=== PATIENT | female | born 1950 | race Caucasian/White ===

== ENCOUNTER → 2017-12-12 | Outpatient (CLI) | payer OTHER ==
--- NOTE | 2017-12-12 11:29 | DIAGNOSTIC IMAGING REPORT ---
RENAL ULTRASOUND CLINICAL HISTORY: Renal cyst. History of renal cell carcinoma. COMPARISON STUDY: None. TECHNIQUE: Sonography of the kidneys and the urinary bladder was performed. FINDINGS: The right kidney measures 8.8 x 3.9 x 5 cm. Note is made of a 6 mm cyst within the midpole of the right kidney. Exam is compromised by suboptimal penetration. The left kidney measures 14.7 x 3.9 x 4 cm. Note is made of an 8.4 x 8.2 x 7.7 cm anechoic lesion arising from the lower pole of the left kidney. This is consistent with a cyst. There is apparent mild right and moderate left collecting system dilatation. Both ureteral jets were identified. IMPRESSION: 1. 8.4 cm left renal cyst. 2. Apparent moderate left and mild right collecting system dilatation. Parapelvic cysts could appear similar although collecting system dilatation of uncertain etiology is favored. Electronically signed by: Seabs Kerns M.D. 12/12/2017 11:27 AM Dictated Date/Time: 12/12/2017 11:24 AM
== END | disposition home or self-care (01) ==
LOC: C.ULTR 10:23
PROVIDERS: ATTEND Family Medicine
DX: N28.1 Cyst of kidney, acquired (principal)

== ENCOUNTER 2019-10-13 00:47 | Observation (INO) ==
[2019-10-13] MEDS ORDERED: SODIUM CHLORIDE 0.9% 1000ML 1,000 ML IV ONE (01:17)
[2019-10-13] MEDS ORDERED: MECLIZINE HCL 25 MG TAB PO STA (01:17)
[2019-10-13 01:43] LABS: Eosinophils # (auto) 0.14 K/uL (0-0.5); Hematocrit (blood only) 42.4 % (37-47); Hemoglobin 14.8 g/dL (12.0-16.0); Immature Granulocytes # (auto) 0.01 K/uL (0.00-0.02); Immature Granulocytes % (auto) 0.1 %; Lymphocytes # (auto) 2.09 K/uL (1.2-3.4); Lymphocytes % (auto) 29.2 %; Mean Corpuscular Hemoglobin 31.1 pg (25-34); Mean Corpuscular Hgb Conc 34.9 g/dL (32-36); Mean Corpuscular Volume 89.1 fL (80-100); Mean Platelet Volume 9.2 fL (7.4-10.4); Monocytes # (auto) 0.54 K/uL (0.11-0.59); Monocytes % (auto) 7.6 %; Neutrophils # (auto) 4.37 K/uL (1.4-6.5); Neutrophils % (auto) 61.1 %; Platelet Count 208 K/uL (130-400); RDW Coefficient of Variation 12.6 % (11.5-14.5); RDW Standard Deviation 40.9 fL (36.4-46.3); Red Blood Count 4.76 M/uL (4.2-5.4); White Blood Count 7.15 K/uL (4.8-10.8)
[2019-10-13 01:50] LABS: Appearance Urine Clear (Clear); Bacteria Urine Automated Negative (Negative); Bilirubin Urine Negative (Negative); Blood Urine Negative (Negative); Color Urine Yellow; Epithelial Cell Urine Auto 20-30 /lpf (0-5); Glucose Urine UA Negative (Negative); Ketones Urine Negative (Negative); Leukocyte Esterase Urine Trace (Negative); Nitrite Urine Negative (Negative); Protein Urine Negative (Negative); RBC Urine Automated 0-4 /hpf (0-4); Urobilinogen Urine Negative (Negative)
[2019-10-13 01:59] LABS: BUN Creatinine Ratio 23.9 (10-20); Blood Urea Nitrogen 17 mg/dl (7-18); Calcium 9.2 mg/dl (8.5-10.1); Carbon Dioxide 26 mmol/L (21-32); Chloride 106 mmol/L (98-107); Creatinine Clr Calc Pharmacy 61.2 ml/min; Est GFR (African American) 99.7; Est GFR (Non-African American) 86.1; Glucose 111 mg/dl (70-99); Potassium 3.7 mmol/L (3.5-5.1); Sodium 139 mmol/L (136-145)
[2019-10-13 02:04] LABS: Troponin I < 0.015 ng/ml (0-0.045)
[2019-10-13] MEDS: MECLIZINE HCL 25MG HOME PACK PO ONE ×2 (02:59→03:04)
[2019-10-13] MEDS ORDERED: DIAZEPAM 5 MG/ML INJ 10ML VIAL IV STA (03:01)
--- NOTE | 2019-10-13 04:49 | History & Physical Report ---
Date of Service October 13, 2019 Assessment & Plan (1) Vertigo: 69-year-old female with history of hyperlipidemia, hypertension, kidney cancerright partial nephrectomy 2001, allergic rhinitis, GERD status post niacin 2005, vitamin D deficiency, IBS, osteoarthritis, insomnia presents status post vertigo episodes today. Concern for likely peripheral vertigo. Vertigo: Likely peripheral versus central Positive hints test and [place]-Hallpike Patient is not hypotensive CT head negative: Chronic small vessel ischemic changes C-spine CT negative MRI brain deferred EKG normal sinus 68 QTC 425 Troponin negative Received 1 L normal saline, meclizine and diazepam in the ED Meclizine as needed Neurology consulted Monitor on telemetry Hyperlipidemia Per PCP note and patient statin intolerant Fairly controlled via diet and exercise Repeat lipid profile ordered History of prediabetes Glucose 111 today A1c ordered Allergic rhinitis Continue home Nasonex Anxiety/insomnia Continue home Ativan as needed History of kidney cancer status post right partial nephrectomy 2001 FEN/GI: Heart healthy diet Code: Full DVT prophylaxis: SCDs only, encourage ambulation Disposition: [facility] with telemetry (2) History of kidney cancer: (3) Vitamin D deficiency: (4) Irritable bowel syndrome: (5) Hyperlipidemia: (6) Allergic rhinitis: (7) Acid reflux: History of Present Illness Chief Complaint: Vertigo Primary Care Provider: Alison Mathias DO 69-year-old female with history of hyperlipidemia, hypertension, kidney c ancerright partial nephrectomy 2001, allergic rhinitis, GERD status post niacin 2005, vitamin D deficiency, IBS, osteoarthritis, insomnia presents status post vertigo episodes today. Reports waking up this morning and going to the bathroom twice during which she felt like the room was spinning for about a minute. She was fine for the rest of the day and carried out her regular routine. However she woke up from sleep all of a sudden around 10:30 PM and felt like she was going to fall and had the same room spinning sensation. She reports bumping with her shoulder into the wall and and hit her dresser with her buttocks. She denies any head injury or loss of consciousness. Presented to the emergency room for concern of possible stroke. Vertigo was worse when she bended over. Also reports allergy symptoms-sinus tenderness, congestion, postnasal drip with mild sore throat. Denies any nausea, vomiting, shortness of breath, chest pain, headache, abdominal pain, constipation, dysuria, hematuria. Patient reports still being lightheaded and alone at home so she feels unsafe to go back at this time and would like to remain in the hospital for observation. Allergies Allergy/AdvReac Type Severity Reaction Status Date / Time adhesive Allergy Intermediate WELTS Verified 10/13/19 01:44 Penicillins Allergy Intermediate Rash Verified 10/13/19 01:44 Sulfa (Sulfonamide Allergy Intermediate Rash Verified 10/13/19 01:44 Antibiotics) metoclopramide [From Reglan] AdvReac Severe Anaphylaxis Verified 10/13/19 01:44 Home Medications Home Medications Medication Instructions Recorded Confirmed Type acetaminophen [Tylenol Extra 1,000 mg PO Q6H PRN 05/17/19 10/13/19 History Strength] cholecalciferol (vitamin D3) 50 2,000 units PO DAILY #30 cap 05/24/19 10/13/19 Rx mcg (2,000 unit) capsule diclofenac sodium 1 % topical gel 2 gm TOP BID PRN #100 gm 05/24/19 10/13/19 Rx mometasone 50 mcg/actuation nasal 1 - 2 spray INTRANASAL DAILY #17 gm 09/13/19 10/13/19 Rx spray lorazepam 0.5 mg tablet 0.5 mg PO DAILY PRN #90 tab 09/17/19 10/13/19 Rx meclizine 25 mg PO TID PRN #14 tab 10/13/19 Rx Past Med/Surg History Medical History Acid reflux Allergic rhinitis Diverticulosis of colon History of kidney cancer 2001, s/p nephrectomy Hyperlipidemia Insomnia Irritable bowel syndrome Prediabetes Renal cyst Vitamin D deficiency Surgical History H/O partial nephrectomy (Resolved) History of fundoplication (Acute) History of hernia repair History of oophorectomy, unilateral right side S/P cholecystectomy (05/20/19) S/P ERCP (05/18/19) Family History Mother , age 46 Colon cancer Thyroid disease Father Pneumonia Social History Preferred Language: Khmer Communication Ability: Effective Visual Impairment: No Limitations Hearing Ability: Normal Freight Brake Operator Required: No Beliefs That Will Affect Care: None marital status: Current Living Situation: Spouse current occupational status: retired Feels Safe at Home: Yes Smoking Status: Never smoker Second Hand Exposure: Yes (as a child) ; Hx Alcohol Use: No Hx Substance Use: No Dental Care, Regularly: Yes Physical Activity Frequency: Does not Exercise Seatbelt Use: always Review of Systems Review of Systems: As per HPI Physical Exam Physical Exam: General: In NAD Neuro: A&O x 4, CN 2-12 intact, positive HINTS test, Vik Hallpike produced nystagus when head turned to left side at 45 degrees, Benjamin maneuver performed, Strength 5/5 bilateral upper and lower extremities, sensation intact Pulm: CTAB equal breath sounds bilaterally CV: RRR, no m/r/g Abdomen:+BS, no TTP in all quadrants, non-distended LE: no LE edema, no calf TTP Results & Data Vital Signs (Past 12 Hours) Vital Signs Temp Pulse Pulse Resp BP BP Pulse Ox 10/13/19 03:59 75 16 145/93 H 95 10/13/19 03:17 69 18 153/97 H 98 10/13/19 02:49 73 20 148/92 H 96 10/13/19 02:36 68 18 168/99 H 98 10/13/19 01:58 61 18 152/88 H 96 10/13/19 00:54 36.5 C 61 18 176/107 H 99 Laboratory Results Abnormal lab results 10/13/19 10/13/19 Range/Units 01:30 01:30 BUN/Creatinine Ratio 23.9 H (10-20) Glucose 111 H (70-99) mg/dl Ur Leukocyte Esterase Trace H (Negative) U Epithel Cells (Auto) 20-30 H (0-5) /lpf Code Status & VTE Plan Code Status Full code VTE Prophylaxis Plan VTE Prophylaxis will be ordered: Yes Supervising Physician Co-Signing Physician Notes Attending addendum: I have physically seen this patient, have supervised the medical residents activities, and agree with the H&P unless as otherwise noted. Assessment and Plan: Vertigo/likely BPPV- Patient lives alone at home and is concerned about going home with her symptoms. CT head negative for acute event, does show chronic small vessel disease. Physical examination consistent with peripheral source. Received 1 L normal saline, meclizine and diazepam in ED without significant improvement symptoms. Admit to monitored bed overnight. Neurology to see in the a.m. Remainder of orders and notations as noted. Resident Activity Tracking Resident Involvement: Resident Care Provided Care Provided: Adult [facility] Medicine
[2019-10-13] MEDS ORDERED: ONDANSETRON INJ 2 MG/ML 2 ML VIAL IV PRN (05:34)
[2019-10-13] MEDS ORDERED: MECLIZINE 12.5 MG TAB PO PRN (05:34)
[2019-10-13] MEDS ORDERED: ACETAMINOPHEN 500 MG TAB PO PRN (05:34)
[2019-10-13] MEDS ORDERED: LORazepam 0.5 MG TAB PO PRN (05:34)
[2019-10-13] MEDS ORDERED: DICLOFENAC SOD 1% GEL 100 GM TUBE EXT PRN (05:34)
--- NOTE | 2019-10-13 05:59 | Emergency Department Note ---
Entered by Hal Sanchez acting as a scribe for ED Provider Note Name: Chula Miller Age: 69 Arrives Via: Triage Informant: Self CC: Dizziness HPI: 69 y/o female arrives for evaluation of intermittent dizziness beginning 21 hours ago. The patient states she woke up around 4am yesterday morning to use the restroom and experienced dizziness when she was getting out and getting into bed. She reports it felt as if the room was spinning. The patient notes she then had another episode a few hours later. She states she was active today around town and did not have difficulty. The patient reports she then had another episode tonight as she went to bed. She notes she got up to use the restroom aga in and felt the room spinning. The patient states she started stumbling this time and ran into the wall and dresser due to the room spinning. She reports she did not hit her head. The patient notes she also had left arm numbness and neither dropped anything nor had difficulty walking today. She states she is right handed. The patient reports a history of arthritis and has neck pain. She notes a recent cholecystectomy, and she has not been eating regularly since her surgery. The patient denies urinary burning, urinary frequency, and vomiting. She also denies a history of smoking, drug use and regular alcohol use. ROS: See above HPI for pertinent positives & negatives. A total of 10 systems reviewed and were otherwise negative. Past Medical History: Renal cell carcinoma, GERD, HLD, IBS Past Surgical History: Cholecystectomy, laparoscopy, hernia repair Family History: Cancer, [place] Social History: Negative drug and tobacco use. Retired. Lives with . . Home Medications: Ativan and Nasonex Allergies Penicillins, Sulfa Physical: Vitals: BP 176/107, Pulse 61, Resp 18, Temp 97.7 F, O2 Sat 99 on RA Exam: GENERAL: Patient is anxious appearing and in minimal acute distress. EYES: No scleral icterus, unremarkable pupils. ENT: Mucous membranes moist, no nasal congestion. NECK: No masses appreciated, no meningismus, trachea is midline. RESPIRATORY: No dyspnea. Clear to auscultation and equal bilaterally. No wheeze, no rhonchi. CARDIOVASCULAR: Regular rate and rhythm. No murmurs, rubs, gallops appreciated. GASTROINTESTINAL: Abdomen soft, non-tender, no peritonitis. Bowel sounds positive. No masses appreciated. BACK: No midline tenderness, no CVA tenderness EXTREMITIES: Normal motion all extremities, no cyanosis, no edema. NEUROLOGIC: Alert and oriented, no acute motor or sensory deficits, no focal weakness, cranial nerves grossly intact. Right horizontal nystagmus. SKIN: No rash, no jaundice, no diaphoresis. ED Course: Prior Medical Record, Triage/Nursing Notes, Medications, Allergies reviewed by Me Vital Signs: reviewed and remarkable for HTN Labs: Reviewed and remarkable for wnl Interventions: saline lock, meclizine 25mg PO, Valium 5mg IV, NSS bolus 1 VIRY Imaging: Radiology results as stated below per my review and the radiologist's interpretation: CT HEAD: No ICH, mass effect or edema. Chronic small vessel ischemic change. No skull fracture. Radiologist: Husam Blank M.D. Study ready at 01:58 and initial results transmitted at 02:11 CT C SPINE: No evidence of fracture or malalignment. Radiologist: Husam Blank M.D. Study ready at 02:00 and initial results transmitted at 02:29 EKG: Per My Interpretation: Indication Vertigo. NSR 68 bpm, qtc 425, no ectopy no ischemia. Similar 05/19/19 Consults: none Reassessments/Times: 0108: Past medical records reviewed. The patient was evaluated in room A03. A complete history and physical exam was performed. 0148: The patient is at CT. 0236: The patient has had complete resolution of her symptoms and is ambulating without difficulty. 0250: I discussed vertigo and the risk of having a stroke. The patient would like to leave. She will follow-up with her PCP. 0301: The patient stood up to leave and had a sudden onset of severe symptoms. She almost lost consciousness. 0304: Upon reevaluation, the patient is resting comfortably. I discussed laboratory and radiographic results with her. She verbalized agreement of the treatment plan. The patient will be evaluated for further management and care. 0308: Paged Dr. Pastor, [facility] Hospitalist. 0329: I reviewed the patient's case with Dr. Pastor, [facility] Hospitalist. He will evaluate the patient for further management. Blood pressure: Elevated - Referred to Hospitalist Disposition: Hospitalization Differentials: Benign positional vertigo, Dehydration, Hypovolemia, Anemia, Tumor, Infection, Hypoglycemia, Electrolyte abnormalities, Cardiac sources, Intracerebral event, Toxicologic, Neurologic, as well as others were entertained. Medical Decision Making: Pleasant 69 yr old female with vertiginous symptoms in setting of dehydration. Given IV Fluids and meclizine and initially improved but then had severe symptoms and near syncope as being discharged. After this required IV valium. Due to living alone and still symptomatic hospitalist consulted for further management. Patient with some tingling left arm but no weakness nor other symptoms of stroke and with 12+ hours symptoms not TPA candidate. CT head neg. CT cervical done as some neck pain after falling against wall, but no evidence fracture. Work up otherwise benign. Impression: Vertigo Jonathan Harrell MD The scribe's documentation has been prepared under my direction and personally reviewed by me in its entirety. I confirm that the note above accurately reflects all work, treatment, procedures, and medical decision making performed by me. Impression & Plan Vertigo Past Med/Surg History Medical History Acid reflux Allergic rhinitis Diverticulosis of colon History of kidney cancer 2001, s/p nephrectomy Hyperlipidemia Insomnia Irritable bowel syndrome Prediabetes Renal cyst Vitamin D deficiency Surgical History H/O partial nephrectomy (Resolved) History of fundoplication (Acute) History of hernia repair History of oophorectomy, unilateral right side S/P cholecystectomy (05/20/19) S/P ERCP (05/18/19) Family History Mother , age 46 Colon cancer Thyroid disease Father Pneumonia Social History Preferred Language: [place] Communication Ability: Effective Visual Impairment: No Limitations Hearing Ability: Normal Clinical Support Nurse Required: No Beliefs That Will Affect Care: None marital status: Current Living Situation: Spouse current occupational status: retired Feels Safe at Home: Yes Smoking Status: Never smoker Second Hand Exposure: No ; Hx Alcohol Use: No Hx Substance Use: No Dental Care, Regularly: Yes Physical Activity Frequency: Does not Exercise Seatbelt Use: always Results & Data Vital Signs Vital Signs - 24 hr 10/13/19 00:54 10/13/19 01:58 10/13/19 02:36 Temperature 36.5 C Temperature Source Oral Pulse Rate 61 Pulse Rate [Left Finger] 61 68 Respiratory Rate 18 18 18 Respiratory Effort / Characteristics Non-Labored Respiratory Depth Normal Blood Pressure 176/107 H Blood Pressure [Right Arm] 152/88 H 168/99 H Blood Pressure Mean 130 Blood Pressure Mean [Right Arm] 109 122 Blood Pressure Position [Right Arm] Sitting Sitting Pulse Oximetry 99 96 98 Oxygen Delivery Method Room Air Room Air Room Air Sepsis Recent Fever Within 48 Hours No Sepsis Action Taken by Nursing No Action Required 10/13/19 02:49 10/13/19 03:17 10/13/19 03:59 Temperature Temperature Source Pulse Rate Pulse Rate [Left Finger] 73 69 75 Respiratory Rate 20 18 16 Respiratory Effort / Characteristics Respiratory Depth Blood Pressure Blood Pressure [Right Arm] 148/92 H 153/97 H 145/93 H Blood Pressure Mean Blood Pressure Mean [Right Arm] 110 115 110 Blood Pressure Position [Right Arm] Pulse Oximetry 96 98 95 Oxygen Delivery Method Room Air Room Air Room Air Sepsis Recent Fever Within 48 Hours Sepsis Action Taken by Nursing Laboratory Data Result diagrams: 10/13/19 01:30 10/13/19 01:30 Lab Results 10/13/19 10/13/19 10/13/19 Range/Units 01:30 01:30 01:30 WBC 7.15 (4.8-10.8) K/uL RBC 4.76 (4.2-5.4) M/uL Hgb 14.8 (12.0-16.0) g/dL Hct 42.4 (37-47) % MCV 89.1 (80-100) fL MCH 31.1 (25-34) pg MCHC 34.9 (32-36) g/dL RDW Std Deviation 40.9 (36.4-46.3) fL RDW Coeff of Abdifatah 12.6 (11.5-14.5) % Plt Count 208 (130-400) K/uL MPV 9.2 (7.4-10.4) fL Immature Gran % (Auto) 0.1 % Neut % (Auto) 61.1 % Lymph % (Auto) 29.2 % [place] % (Auto) 7.6 % Eos % (Auto) 2.0 % Baso % (Auto) 0.0 % Immature Gran # (Auto) 0.01 (0.00-0.02) K/uL Neut # (Auto) 4.37 (1.4-6.5) K/uL Lymph # (Auto) 2.09 (1.2-3.4) K/uL [place] # (Auto) 0.54 (0.11-0.59) K/uL Eos # (Auto) 0.14 (0-0.5) K/uL Baso # (Auto) 0.00 (0-0.2) K/uL Sodium 139 (136-145) mmol/L Potassium 3.7 (3.5-5.1) mmol/L Chloride 106 (98-107) mmol/L Carbon Dioxide 26 (21-32) mmol/L Anion Gap 7.0 (3-11) BUN 17 (7-18) mg/dl Creatinine 0.72 (0.6-1.2) mg/dl Est Cr Clr Drug Dosing 61.2 ml/min Est GFR ( Amer) 99.7 Est GFR (Non-Af Amer) 86.1 BUN/Creatinine Ratio 23.9 H (10-20) Glucose 111 H (70-99) mg/dl Calcium 9.2 (8.5-10.1) mg/dl Troponin I < 0.015 (0-0.045) ng/ml Urine Color Yellow Urine Appearance Clear (Clear) Urine pH 6.0 (4.5-7.5) Ur Specific [place] 1.020 (1.000-1.030) Urine Protein Negative (Negative) Urine Glucose (UA) Negative (Negative) Urine Ketones Negative (Negative) Urine Blood Negative (Negative) Urine Nitrite Negative (Negative) Urine Bilirubin Negative (Negative) Urine Urobilinogen Negative (Negative) Ur Leukocyte Esterase Trace H (Negative) Urine WBC (Auto) 1-5 (0-5) /hpf Urine RBC (Auto) 0-4 (0-4) /hpf U Hyaline Cast (Auto) 1-5 (0-5) /lpf U Epithel Cells (Auto) 20-30 H (0-5) /lpf Urine Bacteria (Auto) Negative (Negative) Administered Medications Discontinued Medications Diazepam (Valium) 5 mg IV NOW STA Stop: 10/13/19 03:02 Last Admin: 10/13/19 03:59 Dose: 5 mg Documented by: [id number] Sodium Chloride (Nss 1000ml) 1,000 mls @ 999 mls/hr IV .Q1H1M ONE Stop: 10/13/19 02:17 Last Infusion: 10/13/19 02:49 Dose: 0 mls/hr Documented by: [id number] Admin: 10/13/19 01:55 Dose: 999 mls/hr Documented by: [id number] Meclizine HCl (Antivert) 25 mg PO NOW STA Stop: 10/13/19 01:18 Last Admin: 10/13/19 01:28 Dose: 25 mg Documented by: [id number] Meclizine HCl (Antivert 25mg Home Pack) 1 homepack PO UD ONE Stop: 10/13/19 02:52 Last Admin: 10/13/19 03:04 Dose: Not Given Documented by: [id number] Discharge Plan Visit Data *Final* Discharge Date/Time: 10/13/19 04:58 Chief Complaint: Dizziness Stated Complaint: DIZZY ED Provider: Jonathan Harrell Discharge Problem: Vertigo Patient Disposition: Admitted As Inpatient Condition: Good Discharge Instructions Interventions: ED Discharge Assessment Last Done: 10/13/19 04:58 The scribe's documentation has been prepared under my direction and personally reviewed by me in its entirety. I confirm that the note above accurately reflects all work, treatment, procedures, and medical decision making performed by me.
[2019-10-13 07:05] LABS: Chol HDL Ratio 3; Cholesterol 175 mg/dl (0-200); HDL Cholesterol 57 mg/dl; LDL Cholesterol Calculated 102 mg/dl; Triglycerides 79 mg/dl (0-150); VLDL Cholesterol 16 mg/dl
--- NOTE | 2019-10-13 08:29 | CT Scan Report ---
CT head/brain wo con CLINICAL HISTORY: 69 years-old Female with vertiginous, new onset. Acute vertigo with head injury st atus post fall TECHNIQUE: Multiple axial CT images of the head were obtained without contrast. A dose lowering tech nique was utilized adhering to the principles of ALARA. COMPARISON: CT cervical spine of same day. FINDINGS: No acute intracranial hemorrhage, midline shift, intracranial mass, hydrocephalus, territorial ischem ia or abnormal extra-axial collection. Mild patchy white matter hypodensities suggest chronic microva scular ischemic disease The calvarium is intact. Trace right mastoid effusion. Left mastoid air cells and paranasal sinuses appear clear. Soft tissues and orbits are unremarkable. IMPRESSION: No acute intracranial abnormality or calvarial fracture. The above report was generated using voice recognition software. It may contain grammatical, syntax o r spelling errors. Electronically signed by: Abel Haro M.D. 10/13/2019 8:28 AM
--- NOTE | 2019-10-13 08:34 | CT Scan Report ---
CT cervical spine wo con CT DOSE: 921.45 mGy.cm CLINICAL HISTORY: 69 years-old Female with fall, upper cervical pain. Acute neck pain status post fa ll COMPARISON: Head CT of same day TECHNIQUE: Multiple axial CT images of the cervical spine were obtained without contrast. A dose low ering technique was utilized adhering to the principles of ALARA. FINDINGS: Moderate to severe disc space narrowing at C5-C6 and C6-C7 with posterior disc osteophyte complex for mations. Severe multilevel facet arthropathy, left greater than right. No acute cervical spine fractu re or subluxation. Evaluation of the central canal or neuroforaminal structures is better evaluated b y MRI. Multilevel foraminal narrowing is noted. Lung apices are clear without pneumothorax. No prever tebral soft tissue swelling. IMPRESSION: No acute cervical spine fracture or subluxation. The above report was generated using voice recognition software. It may contain grammatical, syntax o r spelling errors. Electronically signed by: Abel Haro M.D. 10/13/2019 8:33 AM
[2019-10-13] MEDS ORDERED: CHOLECALCIFEROL 1,000 UNITS 25 MCG TAB PO SCH (09:00)
--- NOTE | 2019-10-13 09:57 | Neurology Consultation ---
Date of Consultation October 13, 2019 Assessment & Plan (1) Vertigo: This patient probably has benign positional paroxysmal vertigo. Her symptoms are reproducible with the Vik-Hallpike. However, I think it would be reasonable to obtain some additional testing to ensure that we are not missing a small posterior circulation infarct. In that light, I think an MRI of the brain with and without contrast would be reasonable. I would also recommend a CT angiogram of the head and neck to exclude vertebrobasilar occlusion, stenosis, or dissection. She may have some difficulty tolerating MRI due to her symptoms that are provoked by lying in the supine position and may require some premed ication with diazepam. May continue with meclizine and/or Lorazepam on an as- needed basis to address her vertigo should she experience a significant recurrence. If her MRI does show evidence of a small acute or subacute infarct then I would recommend starting daily low-dose aspirin and completion of a full stroke work-up including echocardiogram. Would consider consultation with physical therapy as well which may be helpful to address her vertigo. Please contact me if I may be of further assistance. History of Present Illness Reason for Consultation: Vertigo Requesting Physician: Za Godfrey MD Attending Physician: Matt Li DO History of Present Illness The patient is a 69-year-old female with a chief complaint of vertigo. She complains of a spinning sensation that began acutely yesterday morning at around 4 AM upon lying back in bed after returning from the restroom. She woke up the following morning and felt relatively normal. However, later in the evening she had another similar episode with associated stumbling and poor balance. A friend brought her to the emergency department for further assessment. Her initial evaluation was fairly unremarkable. She had a normal-appearing CT of the head and cervical spine. She did have a few beats of gaze evoked nystagmus. Her condition was felt to be most likely consistent with benign positional paroxysmal vertigo. She was treated with IV fluids, meclizine, and Valium. The patient was felt to be clinically stable. However, she experienced another similar episode of vertigo prior to discharge that was triggered by bending forward. The patient denies feeling presyncopal, lightheaded, or dizzy at that time. She did not exhibit any focal or strokelike deficits at that time. Ultimately, it was decided to admit the patient for further evaluation and management. Currently, the patient indicates that she has been feeling rather well. No significant symptomatic recurrence, at least until this time. She has been eating well and denies any headache, diplopia, vision change, change in speech, focal weakness, or sensory loss. She did mention some transient left upper extremity numbness and tingling with some associated neck discomfort that she believes may be related to walking her dog on a leash. Additional details as below. Allergies Allergy/AdvReac Type Severity Reaction Status Date / Time adhesive Allergy Intermediate WELTS Verified 10/13/19 01:44 Penicillins Allergy Intermediate Rash Verified 10/13/19 01:44 Sulfa (Sulfonamide Allergy Intermediate Rash Verified 10/13/19 01:44 Antibiotics) metoclopramide [From Reglan] AdvReac Severe Anaphylaxis Verified 10/13/19 01:44 Home Medications Home Medications Medication Instructions Recorded Confirmed Type acetaminophen [Tylenol Extra 1,000 mg PO Q6H PRN 05/17/19 10/13/19 History Strength] cholecalciferol (vitamin D3) 50 2,000 units PO DAILY #30 cap 05/24/19 10/13/19 Rx mcg (2,000 unit) capsule diclofenac sodium 1 % topical gel 2 gm TOP BID PRN #100 gm 05/24/19 10/13/19 Rx mometasone 50 mcg/actuation nasal 1 - 2 spray INTRANASAL DAILY #17 gm 09/13/19 10/13/19 Rx spray lorazepam 0.5 mg tablet 0.5 mg PO DAILY PRN #90 tab 09/17/19 10/13/19 Rx meclizine 25 mg PO TID PRN #14 tab 10/13/19 Rx Patient History Medical History Acid reflux Allergic rhinitis Diverticulosis of colon History of kidney cancer 2001, s/p nephrectomy Hyperlipidemia Insomnia Irritable bowel syndrome Prediabetes Renal cyst Vitamin D deficiency Surgical History H/O partial nephrectomy (Resolved) History of fundoplication (Acute) History of hernia repair History of oophorectomy, unilateral right side S/P cholecystectomy (05/20/19) S/P ERCP (05/18/19) Family History Mother , age 46 Colon cancer Thyroid disease Father Pneumonia Social History Preferred Language: Belarusian Communication Ability: Effective Visual Impairment: No Limitations Hearing Ability: Normal Box Packer Required: No Beliefs That Will Affect Care: None marital status: Current Living Situation: Spouse current occupational status: retired Other Information That Helps Us Care for You: No Feels Safe at Home: Yes Safety Concerns: Feels Safe At This Time Smoking Status: Never smoker Do You Dip or Chew Tobacco: No ; Second Hand Ex posure: Yes (as a child) ; Hx Alcohol Use: No Hx Substance Use: No Dental Care, Regularly: Yes Physical Activity Frequency: Does not Exercise Seatbelt Use: always Review of Systems Constitutional: no fever and no chills Eyes: no blind spots and no diplopia Ear, Nose, Mouth, Throat: no ear pain, no tinnitus and no hearing loss Respiratory: no cough and no dyspnea Cardiovascular: no chest pain and no palpitations Gastrointestinal: no nausea and no vomiting Genitourinary: no dysuria and no urinary incontinence Musculoskeletal: + neck pain; no myalgia Integumentary: no rash and no lesions Neurologic: as per Subjective / HPI, + unsteadiness, + paresthesia and + dizziness; no tremor(s), no seizure-like activity, no headache(s), no abnormal speech, no confusion and no memory loss Physical Exam Physical Exam: The patient is a well-developed, well-nourished elderly female. She is alert and fully oriented. Recent and remote memory intact. Attention and concentration normal. Patient exhibits an age-appropriate fund of knowledge and normal comprehension of vocabulary. Visual engel full to confrontation. Visual acuity normal. Pupils equal round reactive to light and accommodation. Eye movements normal. Facial sensation intact. There is no facial droop or weakness. Hearing intact bilaterally. Palate elevates to midline. Shoulder shrug intact. Tongue protrudes to midline. Sensation intact to all modalities in all 4 limbs. Deep tendon reflexes intact and symmetrical for the arms and legs. Plantar responses downgoing bilaterally. There is no dysdiadochokinesia or dysmetria [id number]-mh-[id number] or vaqc-zd-yaec bilaterally. Ophthalmoscopic examination reveals normal-appearing optic disks and posterior segments. No papilledema or hemorrhages. Carotid pulses normal bilaterally. No bruits to auscultation. Patient has a mild systolic murmur. Cardiac rhythm regular. Gait and station not tested due to safety concerns. Patient exhibits normal muscle strength and tone for all 4 limbs. No atrophy. No abnormal movements observed. [place]-Hallpike positive with head turn to the right. Vertigo improved with sitting upright. Results & Data Vital Signs (Past 12 Hours) Vital Signs Temp Pulse Pulse Resp BP BP Pulse Ox 10/13/19 07:26 36.9 C 69 20 147/90 H 98 10/13/19 06:00 67 10/13/19 05:49 36.5 C 69 18 157/95 H 96 10/13/19 04:58 62 18 150/97 H 95 10/13/19 03:59 75 16 145/93 H 95 10/13/19 03:17 69 18 153/97 H 98 10/13/19 02:49 73 20 148/92 H 96 10/13/19 02:36 68 18 168/99 H 98 10/13/19 01:58 61 18 152/88 H 96 10/13/19 00:54 36.5 C 61 18 176/107 H 99 Laboratory Results WBC 7.15, hemoglobin 14.8, hematocrit 42.4, platelet count 208, sodium 139, potassium 3.7, BUN 17, creatinine 0.72, glucose 111, calcium 9.2, troponin less than 0.015, triglycerides 79, cholesterol 175, LDL 102, VLDL 16, HDL [address] of the head is negative for hemorrhage or acute process. There is mild chronic microvascular ischemic change. I reviewed the images as well as the radiologist interpretation of this test. Electrocardiogram reveals a normal sinus rhythm, 68 bpm.
[2019-10-13] MEDS ORDERED: OPTIRAY 320 125ml IV PRN (11:23)
--- NOTE | 2019-10-13 11:51 | CT Scan Report ---
CT angio neck with con, CT angio head w con CLINICAL HISTORY: 69 years-old Female with r/o vertebrobasilar occlusion, stenosis, or dissec. Acu te onset vertigo COMPARISON STUDY: Head CT of same day TECHNIQUE: Following the IV administration of 120 mL of Optiray 320, CT angiogram of the head and nec k was performed from the aortic arch to the skull apex. Images are reviewed in the axial, sagittal, a nd coronal planes. 3-D MIPS images are created and assessed. IV contrast was administered without com plication. All measurements were calculated based on NASCET criteria. A dose lowering technique was utilized adhering to the principles of ALARA. CT DOSE: 540.08 mGy.cm FINDINGS: Imaged opacified pulmonary arterial tree appears unremarkable. Three-vessel morphology of aortic arch . Patency of the imaged bilateral subclavian arteries. Mild tortuosity of the patent bilateral common carotid arteries. Mild atheromatous plaque of the left carotid bulb results in less than 50% luminal narrowing. Mild calcified plaque of the left cavernous segment. Bilateral internal carotid arteries, middle and anterior cerebral arteries appear normal and patent. Codominant vertebral arteries are patent and unremarkable. Patent basilar artery. Bilateral posterior cerebral arteries are also unremarkable and widely patent. Cerebral venous sinuses are unremarkable. No aneurysm, dissection, high-grade stenosis or proximal branch occlusion. Lung apices are clear without pneumothorax. Hyperdense 7 mm left thyroid nodule. No adenopathy. Soft tissues appear unremarkable. Multilevel degenerative changes of the cervical spine. No acute fracture . IMPRESSION:Unremarkable CTA of the head and neck without aneurysm, dissection, high-grade stenosis or proximal branch occlusion. The above report was generated using voice recognition software. It may contain grammatical, syntax o r spelling errors. Electronically signed by: Abel Haro M.D. 10/13/2019 11:49 AM
[2019-10-13] MEDS ORDERED: GADOBUTROL 10ML VIAL IV PRN (13:10)
--- NOTE | 2019-10-13 13:39 | Magnetic Resonance Report ---
MR brain wo/w con HISTORY: 69 years-old Female r/o small posterior circulation infarct acute strokelike symptoms with acute dizziness COMPARISON: CTA head neck and CTA head of same day TECHNIQUE: Multiplanar multisequence MRI of the brain was obtained both with and without the use of I V contrast FINDINGS: Membership Solicitor localizer images demonstrate no gross extracranial abnormality. No restricted diffusion to sugg est acute or subacute infarct. Midline structures including the corpus callosum, brainstem, optic chi asm, pituitary and pineal glands appear unremarkable on the sagittal T1 series. There is no cerebella r tonsillar herniation. Degenerative changes are noted about the imaged cervical spine. No acute intracranial hemorrhage, midline shift, abnormal extra-axial collection, hydrocephalus or in tracranial mass. Mild to moderate patchy T2/FLAIR hyperintensities about the white matter suggest chr onic microvascular ischemic disease. There is no abnormal intra-axial or extra-axial enhancement. Anurag dy is mildly motion degraded. Major flow voids at the level the skull base appear patent. Mastoid air cells are clear. No significant paranasal sinus disease. The skull, soft tissues and orbits are unre markable. IMPRESSION: 1. No acute intracranial abnormality, specifically no acute or subacute infarction. 2. No abnormal enhancement. 3. Mild to moderate patchy T2/FLAIR hyperintensities about the white matter suggests chronic microvas cular ischemic disease. The above report was generated using voice recognition software. It may contain grammatical, syntax o r spelling errors. Electronically signed by: Aebl Haro M.D. 10/13/2019 1:37 PM
--- NOTE | 2019-10-13 14:54 | Discharge Summary ---
Date of Service October 13, 2019 Admission HPI Per Admitting Provider 69-year-old female with history of hyperlipidemia, hypertension, kidney cancerright partial nephrectomy 2001, allergic rhinitis, GERD status post niacin 2004, vitamin D deficiency, IBS, osteoarthritis, insomnia presents status post vertigo episodes today. Reports waking up this morning and going to the bathroom twice during which she felt like the room was spinning for about a minute. She was fine for the rest of the day and carried out her regular routine. However she woke up from sleep all of a sudden around 10:30 PM and felt like she was going to fall and had the same room spinning sensation. She reports bumping with her shoulder into the wall and and hit her dresser with her buttocks. She denies any head injury or loss of consciousness. Presented to the emergency room for concern of possible stroke. Vertigo was worse when she bended over. Also reports allergy symptoms-sinus tenderness, congestion, postnasal drip with mild sore throat. Denies any nausea, vomiting, shortness of breath, chest pain, headache, abdominal pain, constipation, dysuria, hematuria. Patient reports still being lightheaded and alone at home so she feels unsafe to go back at this time and would like to remain in the hospital for observation. Principal Diagnosis bppv Discharge Exam Constitutional WD/WN, vitals as above Eyes PERRL, conjunctivae normal, anicteric sclerae ENMT external ear and nose normal, oropharynx normal Respiratory normal respiratory effort, lungs clear to auscultation Cardiovascular RRR, no murmur, no edema Gastrointestinal (Abdomen) normal bowel sounds, soft, nontender, no hepatosplenomegaly Skin no rashes, warm and dry Neurologic + Vik Hallpike Psychiatric A+Ox3, euthymic affect Discharge Data Allergies Allergy/AdvReac Type Severity Reaction Status Date / Time adhesive Allergy Intermediate WELTS Verified 10/13/19 01:44 Penicillins Allergy Intermediate Rash Verified 10/13/19 01:44 Sulfa (Sulfonamide Allergy Intermediate Rash Verified 10/13/19 01:44 Antibiotics) metoclopramide [From Reglan] AdvReac Severe Anaphylaxis Verified 10/13/19 01:44 Consultations 10/13/19 03:15 ED Decision to Admit Stat 10/13/19 05:34 Consult Neurology Routine 10/13/19 14:45 Consult [facility] bottom sander Routine Ordered Studies 10/13/19 01:17 CT cervical spine wo con Urgent CT head/brain wo con Urgent 10/13/19 10:39 MR brain wo/w con Urgent 10/13/19 10:40 CT angio head w con Urgent 10/13/19 10:41 CT angio neck with con Urgent Hospital Course (1) Vertigo: 69-year-old female with history of hyperlipidemia, hypertension, kidney cancerright partial nephrectomy 2001, allergic rhinitis, GERD status post niacin 2004, vitamin D deficiency, IBS, osteoarthritis, insomnia presents status post vertigo episodes today. Concern for likely peripheral vertigo. The follow ing was the medical management during stay here: Vertigo: Likely peripheral versus central Positive hints test and [place]-Hallpike Patient is not hypotensive CT head negative: Chronic small vessel ischemic changes C-spine CT negative EKG normal sinus 68 QTC 425 Troponin negative Rx for Meclizine as needed sent to pharmacy Neurology consulted- probable BPPV MRI Brain to r/o small posterior circulation infarct- normal CT angiogram of the head and neck to exclude vertebrobasilar occlusion, stenosis, or dissection- normal On d/c, PT for vestibular rehab Pt educated on home Benjamin Maneuvers Hyperlipidemia Per PCP note and patient statin intolerant Fairly controlled via diet and exercise Repeat lipid profile ordered- WNL Allergic rhinitis Continue home Nasonex Anxiety/insomnia Continue home Ativan as needed History of kidney cancer status post right partial nephrectomy 2001 At time of d/c, pt had no other acute concerns or complaints. Total Time Total Time Spent Total Time Spent (In Minutes): <30 Discharge Plan Discharge Items Patient Disposition: Home - Self-Care Reason For Visit: vertigo Discharge Diagnosis: BPPV Condition on Discharge: Good Activity: Per Instructions section Non-emergency contact: Primary Care Provider Call non-emergency contact if: you have any medication questions and your symptoms worsen Follow-up/Referrals: Alison Mathias, [Primary Care Provider] - Diet: Heart Healthy Addtl Attending Provider Instructions: Benign paroxysmal positional vertigo (BPPV) is a common form of vertigo, accounting for nearly one-half of patients with peripheral vestibular dysfunction. It is most commonly attributed to calcium debris within the posterior semicircular canal, known as canalithiasis. While symptoms can be troublesome, the disorder usually responds to treatment with particle- repositioning maneuvers. Please follow the below instructions on discharge: -You can do the Benjamin Maneuver at home as follows: -You can do the home Benjamin maneuver on a bed. You start by sitting on the bed. You need to have a pillow in place so that when you lie back it will be under your shoulders. Follow these steps if the problem is with your right ear: Start by sitting on a bed. Turn your head 45 degrees to the right. Quickly lie back, keeping your head turned. Your shoulders should now be on the pillow, and your head should be reclined. Wait 30 seconds. Turn your head 90 degrees to the left, without raising it. Your head will now be looking 45 degrees to the left. Wait another 30 seconds. Turn your head and body another 90 degrees to the left, into the bed. Wait another 30 seconds. Sit up on the left side. Follow these steps if the problem is with your left ear: Start by sitting on a bed. Turn your head 45 degrees to the left. Quickly lie back, keeping your head turned. Your shoulders should now be on the pillow, and your head should be reclined. Wait 30 seconds. Turn your head 90 degrees to the right, without raising it. Your head will now be looking 45 degrees to the right. Wait another 30 seconds. Turn your head and body another 90 degrees to the right, into the bed. Wait another 30 seconds. Sit up on the right side. With the help of the home Ebnjamin maneuver, your vertigo may go away for weeks or even years. BPPV often comes back, though. This might happen if another calcium crystal ends up in your semicircular canals. If your vertigo comes back, do home Benjamin maneuver again to see if your symptoms go away. If the maneuver doesnt w ork, call your healthcare provider. -A script for Meclizine was sent to your pharmacy to also help with your symptoms -We also made arrangements to set you up with physical therapy for vestibular r ehab. You may cancel this if your symptoms have gone away by this time -we got some additional testing to ensure that we are not missing a small posterior circulation infarct, but your Brain MRI did not show this. Ct of your head and neck also excluded any vertebrobasilar occlusion, stenosis, or dissection, which was encouraging. Pending Studies at Discharge: No Stand-Alone Forms: My [facility], Smoking Cessation Medications and DC Order Prescriptions: New meclizine 25 mg tablet 25 mg PO TID PRN (Reason: dizziness) Qty: 14 RF: 0 Continued diclofenac sodium 1 % gel 2 gm TOP BID PRN (Reason: Piriformis syndrome, right hip pain) Qty: 100 RF: 0 cholecalciferol (vitamin D3) 2,000 unit capsule 2,000 units PO DAILY Qty: 30 RF: 3 mometasone [Nasonex] 50 mcg/actuation spray,non-aerosol 1 - 2 spray intranasal DAILY Qty: 17 RF: 5 lorazepam [Ativan] 0.5 mg tablet 0.5 mg PO DAILY PRN (Reason: Anxiety) Qty: 90 RF: 0 acetaminophen [Tylenol Extra Strength] 500 mg Tablet 1,000 mg PO Q6H PRN (Reason: Pain) RF: 0 Discharge Orders: Discharge Order (Routine); Ordered 10/13/19 Ordered By: Randolph Casiano/Other Patient Handouts: Vertigo Paroxysmal Positional Admission Data Admit Date/Time: 10/13/19 04:27 Attending Provider: Matt Li Admit Provider: Amado Pastor Primary Care Provider: Alison Mathias Other Providers: Amado Pastor ; Yared Cardenas Other Interventions: Discharge Summary Assessment (RN) Last Done: 10/13/19 14:53 DC Date/Time DO NOT enter until pt leaves facility: 10/13/19 15:17 Supervising Physician Co-Signing Physician Notes I personally examined the patient and verified all soares points of history and exam, discussed case, and agree with decision making with Dr Duong. feeling better notes that dizzy was spinning and mostly positional. notes that resident did respositioning maneuvers that helped some. discussed neurology agreeing that BPV most likely but wanted to rule out basilar insufficiency/posterior stroke vitals noted nad heent nc at mmm breathing unlabored no pallor or icterus no focal neuro deficits vertigo - positional vertigo. stroke w/u negative. stable for home. vestibular retraining referral placed. Resident Activity Tracking Resident Involvement: Resident Care Provided Care Provided: Adult Hospital Medicine
--- NOTE | 2019-10-13 17:24 | Billing Data ---
Coding Level of Care Code 55899 OBS Care - Discharge
--- NOTE | 2019-10-13 23:27 | Billing Data ---
Coding Level of Care Code 82287 OBS Care - Level 2
[2019-10-14 06:03] LABS: Estimated Average Glucose 114 mg/dl; Hemoglobin A1C 5.6 % (4.5-5.6)
== END 2019-10-13 15:17 | disposition home or self-care (01) ==
LOC: ED 00:47 → 2N 00:47 → SUATTDRO 04:27 → 2N 04:58

== ENCOUNTER 2023-03-17 11:08 | Observation (INO) ==
[2023-03-17] MEDS ORDERED: ONDANSETRON INJ 2 MG/ML 2 ML VIAL IV STA (11:31)
[2023-03-17] MEDS ORDERED: ACETAMINOPHEN 1,000 MG/100 ML VIAL IV STA (11:31)
--- NOTE | 2023-03-17 11:34 | Emergency Department Note ---
Impression & Plan Confusion, Numbness and tingling of right arm, Headache ED Provider Note Provider: Chun Carpenter MD DATE OF SERVICE: 03/17/2023 CHIEF COMPLAINT: Right arm numbness, head neck pain, confusion HISTORY OF PRESENT ILLNESS: Patient is a 72-year-old female history of kidney cancer, IBS, vertigo, and migraines in the past presenting here today with friend with onset of symptoms on waking today. States she has been well recently other than some mild shingles of her left arm which is still a bit painful. States she went to bed okay last night. Woke around 4 to 5 AM briefly and states she felt a bit off but just went back to bed. Woke up later and states she again was feeling off with headache at the top of the head into her neck as well as some numbness in the right arm. Feels that she is confused and having hard time at times getting her words out. Called a neighbor who came to evaluate and states that patient was walking okay. Reports that she is confused and having trouble remember what was going on and with words. No trauma is reported by the patient. Reports she got an aura of some visual changes like sometimes she gets with migraines. Is not the worst headache of her life. States in the past when she has had migraines and issues she has not had confusion or intensely speech issues such as this. PAST MEDICAL HISTORY: As noted above MEDICATIONS: Reviewed home medications SOCIAL HISTORY: Lives by herself PHYSICAL EXAM: GENERAL: alert and oriented in no acute distress on stretcher Head: normocephalic and atraumatic EYES: No injection, discharge or icterus. PERRL, EOMI. NECK: Trachea midline. Supple. Not meningitic. ENT: Mucous membranes pink and moist. Pharynx without erythema or exudate. LUNGS: Airway patent. No retractions. Breath sounds clear with good air entry bilaterally. HEART: Regular rate and rhythm. No chest wall tenderness ABDOMEN: Soft and non-tender, without guarding or rebound. SKIN: Acyanotic, warm, dry, without rashes EXTREMITIES: Without swelling, tenderness or deformity NEUROLOGICAL: Slight aphasia or word finding. No facial droop or slurred speech. Normal strength and tone in the extremities. some decreased sensation of the right upper arm noted. Hypersensitivity pain in the left upper arm she states been chronic for some weeks due to zoster. EK bpm normal sinus rhythm. No PVC or PAC. No acute ST segment elevation or depression with a QTc of 403. CONTINUOUS CARDIAC MONITORING: was ordered and showed a heart rate of 70s-80s bpm in normal sinus rhythm Patient's laboratory studies and imaging reviewed. Differential includes Infection, dehydration, metabolic abnormality, hypo/hyperglycemia, electrolyte disturbance, anemia, hypoxia, cardiac sources, intracerebral event/neurologic, as well as other pathologies. IMPRESSION/MEDICAL DECISION MAKING: Patient with confusion and right arm numbness as well as some mild headache and neck pain. Sent for CTs. Developed sometime overnight not a candidate for thrombolytics is outside the window for this. CT and CT angiograms of the head and neck per radiology without acute findings such as bleed or vascular obstruction. Blood work here is reassuring without anemia or leukocytosis. No significant rash on the left arm where she reports shingles is noted at this point. Minimal legs fine. Seems to have some word finding at some point and again not the best memory of today. Again no trauma history. No evidence of significant lecture abnormality or renal dysfunction on blood work. No leukocytosis again and no fever here and seems atypical for meningitis. Negative COVID. Unsure of exact etiology of the patient's symptoms. Does have some history of migraine and given some Tylenol and Zofran for symptoms of nausea and this already. Benign abdomen I doubt acute intra-abdominal pathology. Urinalysis sent to exclude infection returns reassuring here without signs of infection. Patient is noted to have some hypertension here but not sure this represents hypertensive emergency is not severely elevated. Blood pressure also not as severely elevated to represent press syndrome on the differential. Again doubt this represents subarachnoid hemorrhage given her otherwise reassuring evaluation here at this time. Does not describe this is the worst headache of her life. Could be occult CVA. Reassessment patient's right arm numbness is improving and nearly resolved. DIAGNOSIS: Right arm numbness, headache, confusion DISPOSITION: Hospitalist will evaluate Patient was agreeable with this plan. Past Med/Surg History Medical History (Updated 03/17/23 @ 14:39 by Eduardo Taylor PA-C) Acid reflux Allergic rhinitis Anxiety Arthritis Diverticulosis of colon History of aspiration pneumonia S/P lap mireya (summer 2018)/no issues since 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- "corrected itself"/no further details/follows with cardiology History of kidney cancer (2001) 2002 - s/p partial nephrectomy History of TMJ syndrome mild limited ROM Hyperlipidemia Insomnia Irritable bowel syndrome Prediabetes Renal cyst left Vertigo Vitamin D deficiency Surgical History H/O partial nephrectomy (2001) RIGHT History of anesthesia reaction "TAKES AWHILE TO WAKE UP" History of cardiac cath 25 YRS AGO= CONGENTIAL HEART DISEASE FOUND AND "CORRECTED ITSELF" History of fundoplication History of hernia repair History of incisional hernia repair (11/01/19) open incisional hernia repair History of laparoscopy BURNED OFF ENDOMETRIOSIS History of oophorectomy, unilateral right side Nausea and vomiting after administration of anesthetic agent S/P cholecystectomy (05/20/19) LAP MIREYA S/P ERCP (05/18/19) HX OF X3 Family History Mother , age 46 Colon cancer Thyroid disease Colorectal cancer Father Pneumonia Denies family history of Ovarian cancer Prostate cancer Myocardial infarction Breast cancer Lung cancer Social History Smoking Status: Never smoker Second Hand Exposure: Yes ( A CHILD); Hx Alcohol Use: Yes Alcohol type: beer Alcohol Intake Frequency: Monthly or Less Hx Substance Use: No Preferred Language: Sinhala Communication Ability: Effective Visual Impairment: No Limitations Hearing Ability: Normal Feather Boner Required: No Beliefs That Will Affect Care: None marital status: Current Living Situation: Spouse current occupational status: retired Feels Safe at Home: Yes Childhood Exposure to Second-Hand Smoke: Yes Diet Comment: regular caffeine: Yes (1 or 2 cups of tea a day) during the past year weight has: remained stable Dental Care, Regularly: Yes Physical Activity Frequency: 1-2 Times per Week Seatbelt Use: always Sunscreen Use: Yes Assistive Devices: Glasses Allergies Allergies Allergy/AdvReac Type Severity Reaction Status Date / Time adhesive Allergy Unknown WELTS Verified 09/26/22 07:59 Penicillins Allergy Unknown Rash Verified 09/26/22 07:59 Sulfa (Sulfonamide Allergy Unknown Rash Verified 09/26/22 07:59 Antibiotics) metoclopramide [From Reglan] AdvReac Severe Anaphylaxis Verified 09/26/22 07:59 Home Meds Home Medications Medication Instructions Recorded Confirmed cholecalciferol (vitamin D3) 50 2,000 units PO HS 10/23/19 03/17/23 mcg (2,000 unit) capsule multivitamin 1 tab PO DAILY 03/24/22 03/17/23 Previous Rx's Medication Instructions Recorded meclizine 25 mg tablet 25 mg PO TID PRN dizziness #20 tabs 09/26/22 mometasone 50 mcg/actuation nasal 1 - 2 spray intranasal DAILY #17 11/15/22 spray grams lorazepam 0.5 mg tablet (Ativan) 0.5 mg PO HS #30 tabs 01/20/23 Results & Data (ED) Vital Signs Vital Signs - 24 hr 03/17/23 11:16 03/17/23 11:40 03/17/23 11:57 Temperature 36.8 C Temperature Source Temporal Artery Scan Pulse Rate 108 H 86 Pulse Rate [Apical] 80 Pulse Rhythm Regular Pulse Strength Normal Respiratory Rate 20 18 Respiratory Effort / Characteristics Non-Labored Spontaneous Non-Labored Spontaneous Respiratory Depth Normal Normal Respiratory Pattern Regular Blood Pressure 183/110 H Blood Pressure [Right Arm] 171/107 H Blood Pressure Mean 134 Blood Pressure Mean [Right Arm] 128 Blood Pressure Position Sitting Pulse Oximetry 97 97 Oxygen Delivery Method Room Air Room Air Sepsis Recent Fever Within 48 Hours No Sepsis New/Unexplained Change in Mental Status No Sepsis Action Taken by Nursing No Action Required 03/17/23 12:43 Temperature Temperature Source Pulse Rate Pulse Rate [Apical] 78 Pulse Rhythm Pulse Strength Respiratory Rate 18 Respiratory Effort / Characteristics Non-Labored Spontaneous Respiratory Depth Normal Respiratory Pattern Blood Pressure Blood Pressure [Right Arm] 180/93 H Blood Pressure Mean Blood Pressure Mean [Right Arm] 122 Blood Pressure Position Pulse Oximetry 96 Oxygen Delivery Method Room Air Sepsis Recent Fever Within 48 Hours Sepsis New/Unexplained Change in Mental Status Sepsis Action Taken by Nursing Laboratory Data 03/17/23 11:28 03/17/23 11:28 Lab Results 03/17/23 03/17/23 03/17/23 Range/Units 11:28 11:28 11:28 WBC 5.20 (4.8-10.8) K/ul RBC 5.12 (4.20-5.40) M/uL Hgb 16.0 (12.0-16.0) g/dl POC Hgb (12.0-16.0) g/dl Hct 46.1 (37.0-47.0) % POC Hct (37-47) % MCV 90.0 (80.0-100.0) fL MCH 31.3 (25.0-34.0) pg MCHC 34.7 (32.0-36.0) g/dL RDW Std Deviation 44.0 (36.4-46.3) fL RDW Coeff of Abdifatah 13.5 (11.5-14.5) % Plt Count 252 (130-400) K/uL MPV 9.1 L (9.4-12.4) fL Immature Gran % (Auto) 0.4 % Neut % (Auto) 66.7 % Lymph % (Auto) 24.8 % Bremer % (Auto) 7.3 % Eos % (Auto) 0.6 % Baso % (Auto) 0.2 % Neut # (Auto) 3.47 (1.40-6.50) K/uL Lymph # (Auto) 1.29 (1.2-3.4) K/uL Bremer # (Auto) 0.38 (0.11-0.59) K/uL Eos # (Auto) 0.03 (0-0.50) K/uL Baso # (Auto) 0.01 (0-0.2) K/uL Immature Gran # (Auto) 0.02 (0.01-0.20) K/uL PT 10.5 (9.0-12.0) Seconds INR 1.0 (0.9-1.1) APTT 25.1 (21.0-31.0) Seconds PTT Ratio 0.9 POC Sodium (135-144) mmol/L Sodium 137 (136-145) mmol/L POC Potassium (3.3-5.0) mmol/L Potassium 3.9 (3.5-5.1) mmol/L POC Chloride (101-112) mmol/L Chloride 103 (98-107) mmol/L Carbon Dioxide 27 (21-32) mmol/L POC Total CO2 (24-31) mmol/L Anion Gap 7 (3-11) POC Anion Gap (16-25) mmol/L POC BUN (7-18) mg/dl BUN 14 (6-23) mg/dl Creatinine 0.83 (0.6-1.2) mg/dl POC Creatinine (0.6-1.3) mg/dl Est Cr Clr Drug Dosing 53.9 ml/min Est GFR ( Amer) 82.2 ml/min Est GFR (Non-Af Amer) 70.9 ml/min BUN/Creatinine Ratio 16.9 (10-20) Glucose 120 H (70-99(Fasting)) mg/dl POC Glucose (other) (70-99) mg/dl Calcium 9.8 (8.6-10.3) mg/dl POC Ioniz Calcium Whit (1.12-1.32) mmol/l Magnesium 2.0 (1.7-2.4) mg/dl Total Bilirubin 0.6 (0.2-1.0) mg/dl AST 21 (13-39) U/L ALT 18 (7-52) U/L Alkaline Phosphatase 76 (34-104) U/L Troponin I High Sens 7.0 (0-14) pg/ml Total Protein 7.5 (6.0-8.3) gm/dl Albumin 4.6 (3.4-5.0) gm/dl Globulin 2.9 (2.5-4.0) gm/dl Albumin/Globulin Ratio 1.6 (0.9-2) Urine Color Urine Appearance (Clear) Urine pH (4.5-7.5) Ur Specific [place] (1.000-1.030) Urine Protein (Negative) Urine Glucose (UA) (Negative) Urine Ketones (Negative) Urine Blood (Negative) Urine Nitrite (Negative) Urine Bilirubin (Negative) Urine Urobilinogen (Negative) Ur Leukocyte Esterase (Negative) SARS-CoV-2, RNA, NAAT (NEGATIVE) 03/17/23 03/17/23 03/17/23 Range/Units 11:33 11:40 12:11 WBC (4.8-10.8) K/ul RBC (4.20-5.40) M/uL Hgb (12.0-16.0) g/dl POC Hgb 16.0 (12.0-16.0) g/dl Hct (37.0-47.0) % POC Hct 47 (37-47) % MCV (80.0-100.0) fL MCH (25.0-34.0) pg MCHC (32.0-36.0) g/dL RDW Std Deviation (36.4-46.3) fL RDW Coeff of Abdifatah (11.5-14.5) % Plt Count (130-400) K/uL MPV (9.4-12.4) fL Immature Gran % (Auto) % Neut % (Auto) % Lymph % (Auto) % [place] % (Auto) % Eos % (Auto) % Baso % (Auto) % Neut # (Auto) (1.40-6.50) K/uL Lymph # (Auto) (1.2-3.4) K/uL Bremer # (Auto) (0.11-0.59) K/uL Eos # (Auto) (0-0.50) K/uL Baso # (Auto) (0-0.2) K/uL Immature Gran # (Auto) (0.01-0.20) K/uL PT (9.0-12.0) Seconds INR (0.9-1.1) APTT (21.0-31.0) Seconds PTT Ratio POC Sodium 138 (135-144) mmol/L Sodium (136-145) mmol/L POC Potassium 3.9 (3.3-5.0) mmol/L Potassium (3.5-5.1) mmol/L POC Chloride 102 (101-112) mmol/L Chloride (98-107) mmol/L Carbon Dioxide (21-32) mmol/L POC Total CO2 25 (24-31) mmol/L Anion Gap (3-11) POC Anion Gap 16.0 (16-25) mmol/L POC BUN 14 (7-18) mg/dl BUN (6-23) mg/dl Creatinine (0.6-1.2) mg/dl POC Creatinine 0.9 (0.6-1.3) mg/dl Est Cr Clr Drug Dosing ml/min Est GFR ( Amer) ml/min Est GFR (Non-Af Amer) ml/min BUN/Creatinine Ratio (10-20) Glucose (70-99(Fasting)) mg/dl POC Glucose (other) 128 H (70-99) mg/dl Calcium (8.6-10.3) mg/dl POC Ioniz Calcium Whit 1.21 (1.12-1.32) mmol/l Magnesium (1.7-2.4) mg/dl Total Bilirubin (0.2-1.0) mg/dl AST (13-39) U/L ALT (7-52) U/L Alkaline Phosphatase (34-104) U/L Troponin I High Sens (0-14) pg/ml Total Protein (6.0-8.3) gm/dl Albumin (3.4-5.0) gm/dl Globulin (2.5-4.0) gm/dl Albumin/Globulin Ratio (0.9-2) Urine Color Yellow Urine Appearance Clear (Clear) Urine pH 7.0 (4.5-7.5) Ur Specific [place] 1.009 (1.000-1.030) Urine Protein Negative (Negative) Urine Glucose (UA) Negative (Negative) Urine Ketones Negative (Negative) Urine Blood Negative (Negative) Urine Nitrite Negative (Negative) Urine Bilirubin Negative (Negative) Urine Urobilinogen Negative (Negative) Ur Leukocyte Esterase Negative (Negative) SARS-CoV-2, RNA, NAAT NEGATIVE (NEGATIVE) Administered Medications Discontinued Medications Acetaminophen (Ofirmev) 1,000 mg in 100 mls @ 400 mls/hr IV NOW STA Stop: 03/17/23 11:45 Last Infusion: 03/17/23 11:54 Dose: 0 mls/hr Documented By: Admin: 03/17/23 11:38 Dose: 400 mls/hr Documented By: VINCENT Ioversol (Optiray 320 500ml) 120 ml IV ONCE ONE Stop: 03/17/23 12:28 Last Admin: 03/17/23 12:27 Dose: 120 ml Documented By: IDA Ondansetron HCl (Ondansetron Inj 2 Mg/Ml 2 Ml Vial) 4 mg IV NOW STA Stop: 03/17/23 11:32 Last Admin: 03/17/23 11:37 Dose: 4 mg Documented By: VINCENT Imaging Data Radiologist's Impression: Head CT 03/17/23 11:[address] OF THE BRAIN; CT ANGIOGRAM OF THE BRAIN; CT ANGIOGRAM OF THE NECK CLINICAL HISTORY: Right upper extremity numbness. Headache. Neck pain. Change in mental status. COMPARISON STUDY: CT of the brain dated 10/13/2019. CT angiogram of the head and neck dated 10/13/2019. TECHNIQUE: Unenhanced axial CT scan of the brain is performed. Subsequently, following the IV administration of 120 of Optiray 320, CT angiogram of the head and neck was performed from the aortic arch to the vertex. Images are reviewed in the axial, sagittal, and coronal planes. 3-D MIPS images are created and assessed. IV contrast was administered without complication. All measurements were calculated based on NASCET criteria. A dose lowering technique was utilized adhering to the principles of ALARA. CT DOSE: 1129.85 mGy.cm FINDINGS: Brain parenchyma: There is age related involutional change noting moderate subcortical and periventricular microangiopathic disease. There is no hemorrhage, mass effect, or evidence of acute territorial ischemia by CT criteria. There is no evidence of enhancing mass lesion on the angiogram phase images. The ventricles, sulci, and cisterns are prominent secondary to additi onal change. Montes-white matter differentiation is preserved. No extra-axial fluid collection is seen. Thoracic aorta: Visualized portions of the thoracic aorta are normal in caliber. The aortic arch demonstrates standard 3-vessel anatomy. Right carotid arterial system: The right common carotid artery is widely patent, as are the right internal and external carotid arteries. Left carotid arterial system: The left common carotid artery is widely patent, as are the left internal and external carotid arteries. Vertebral arteries: The vertebral arteries are widely patent bilaterally and codominant. Subclavian arteries: Widely patent bilaterally. Intracranial vasculature: There is atherosclerotic calcification of the cavernous carotid arteries. The [place] is developmentally complete. The internal carotid arteries are patent at the skull base, as are the anterior and middle cerebral arteries bilaterally. The vertebrobasilar system and posterior cerebral arteries are widely patent. The vertebral arteries are codominant. There is no aneurysm, high-grade stenosis, or focal vessel cut off seen throughout the intracranial circulation. Jugular veins: Patent bilaterally. Dural sinuses: Patent. Lung apices: Partially visualized upper lobe lung parenchyma appears clear. Soft tissues: The visualized pharyngeal soft tissues are normal in appearance noting angiographic phase technique. The oropharyngeal airway appears widely patent. The salivary and thyroid glands are normal in appearance. No cervical lymphadenopathy is seen. Skeletal structures: The skeletal structures are osteopenic. The calvarium appears intact. The cervical spine is maintained noting mild spondylosis. No lytic or blastic lesion is seen. Orbits: The bony orbits are intact. Orbital contents are normal as visualized. Sinuses and mastoids: There is trace mucosal thickening in the right maxillary antrum. The remaining paranasal sinuses are clear. The mastoid air cells are well pneumatized. IMPRESSION: 1. There is no hemorrhage, mass effect, or evidence of acute territorial ischemia by CT criteria. 2. Unremarkable CT angiogram of the brain. 3. Unremarkable CT angiogram of the neck. ACT 112: Negative or not required by law. Electronically signed by: Dio Mosley M.D. 03/17/2023 12:44 PM Head CTA 03/17/23 11:[address] OF THE BRAIN; CT ANGIOGRAM OF THE BRAIN; CT ANGIOGRAM OF THE NECK CLINICAL HISTORY: Right upper extremity numbness. Headache. Neck pain. Change in mental status. COMPARISON STUDY: CT of the brain dated 10/13/2019. CT angiogram of the head and neck dated 10/13/2019. TECHNIQUE: Unenhanced axial CT scan of the brain is performed. Subsequently, following the IV administration of 120 of Optiray 320, CT angiogram of the head and neck was performed from the aortic arch to the vertex. Images are reviewed in the axial, sagittal, and coronal planes. 3-D MIPS images are created and assessed. IV contrast was administered without complication. All measurements were calculated based on NASCET criteria. A dose lowering technique was utilized adhering to the principles of ALARA. CT DOSE: 1129.85 mGy.cm FINDINGS: Brain parenchyma: There is age related involutional change noting moderate subcortical and periventricular microangiopathic disease. There is no hemorrhage, mass effect, or evidence of acute territorial ischemia by CT criteria. There is no evidence of enhancing mass lesion on the angiogram phase images. The ventricles, sulci, and cisterns are prominent secondary to additional change. Montes-white matter differentiation is preserved. No extra- axial fluid collection is seen. Thoracic aorta: Visualized portions of the thoracic aorta are normal in caliber. The aortic arch demonstrates standard 3-vessel anatomy. Right carotid arterial system: The right common carotid artery is widely patent, as are the right internal and external carotid arteries. Left carotid arterial system: The left common carotid artery is widely patent, as are the left internal and external carotid arteries. Vertebral arteries: The vertebral arteries are widely patent bilaterally and codominant. Subclavian arteries: Widely patent bilaterally. Intracranial vasculature: There is atherosclerotic calcification of the cavernous carotid arteries. The [place] is developmentally complete. The internal carotid arteries are patent at the skull base, as are the anterior and middle cerebral arteries bilaterally. The vertebrobasilar system and po sterior cerebral arteries are widely patent. The vertebral arteries are codominant. There is no aneurysm, high-grade stenosis, or focal vessel cut off seen throughout the intracranial circulation. Jugular veins: Patent bilaterally. Dural sinuses: Patent. Lung apices: Partially visualized upper lobe lung parenchyma appears clear. Soft tissues: The visualized pharyngeal soft tissues are normal in appearance noting angiographic phase technique. The oropharyngeal airway appears widely patent. The salivary and thyroid glands are normal in appearance. No cervical lymphadenopathy is seen. Skeletal structures: The skeletal structures are osteopenic. The calvarium appears intact. The cervical spine is maintained noting mild spondylosis. No lytic or blastic lesion is seen. Orbits: The bony orbits are intact. Orbital contents are normal as visualized. Sinuses and mastoids: There is trace mucosal thickening in the right maxillary antrum. The remaining paranasal sinuses are clear. The mastoid air cells are well pneumatized. IMPRESSION: 1. There is no hemorrhage, mass effect, or evidence of acute territorial ischemia by CT criteria. 2. Unremarkable CT angiogram of the brain. 3. Unremarkable CT angiogram of the neck. ACT 112: Negative or not required by law. Electronically signed by: Dio Mosley M.D. 03/17/2023 12:44 PM Neck CTA 03/17/23 11:[address] OF THE BRAIN; CT ANGIOGRAM OF THE BRAIN; CT ANGIOGRAM OF THE NECK CLINICAL HISTORY: Right upper extremity numbness. Headache. Neck pain. Change in mental status. COMPARISON STUDY: CT of the brain dated 10/13/2019. CT angiogram of the head and neck dated 10/13/2019. TECHNIQUE: Unenhanced axial CT scan of the brain is performed. Subsequently, following the IV administration of 120 of Optiray 320, CT angiogram of the head and neck was performed from the aortic arch to the vertex. Images are reviewed in the axial, sagittal, and coronal planes. 3-D MIPS images are created and ass essed. IV contrast was administered without complication. All measurements were calculated based on NASCET criteria. A dose lowering technique was utilized adhering to the principles of ALARA. CT DOSE: 1129.85 mGy.cm FINDINGS: Brain parenchyma: There is age related involutional change noting moderate subcortical and periventricular microangiopathic disease. There is no hemorrhage, mass effect, or evidence of acute territorial ischemia by CT criteria. There is no evidence of enhancing mass lesion on the angiogram phase images. The ventricles, sulci, and cisterns are prominent secondary to additional change. Montes-white matter differentiation is preserved. No extra- axial fluid collection is seen. Thoracic aorta: Visualized portions of the thoracic aorta are normal in caliber. The aortic arch demonstrates standard 3-vessel anatomy. Right carotid arterial system: The right common carotid artery is widely patent, as are the right internal and external carotid arteries. Left carotid arterial system: The left common carotid artery is widely patent, as are the left internal and external carotid arteries. Vertebral arteries: The vertebral arteries are widely patent bilaterally and codominant. Subclavian arteries: Widely patent bilaterally. Intracranial vasculature: There is atherosclerotic calcification of the cavernous carotid arteries. The [place] is developmentally complete. The internal carotid arteries are patent at the skull base, as are the anterior and middle cerebral arteries bilaterally. The vertebrobasilar system and posterior cerebral arteries are widely patent. The vertebral arteries are codominant. There is no aneurysm, high-grade stenosis, or focal vessel cut off seen throughout the intracranial circulation. Jugular veins: Patent bilaterally. Dural sinuses: Patent. Lung apices: Partially visualized upper lobe lung parenchyma appears clear. Soft tissues: The visualized pharyngeal soft tissues are normal in appearance noting angiographic phase technique. The oropharyngeal airway appears widely patent. The salivary and thyroid glands are normal in appearance. No cervical lymphadenopathy is seen. Skeletal structures: The skeletal structures are osteopenic. The calvarium appears intact. The cervical spine is maintained noting mild spondylosis. No lytic or blastic lesion is seen. Orbits: The bony orbits are intact. Orbital contents are normal as visualized. Sinuses and mastoids: There is trace mucosal thickening in the right maxillary antrum. The remaining paranasal sinuses are clear. The mastoid air cells are well pneumatized. IMPRESSION: 1. There is no hemorrhage, mass effect, or evidence of acute territorial ischemia by CT criteria. 2. Unremarkable CT angiogram of the brain. 3. Unremarkable CT angiogram of the neck. ACT 112: Negative or not required by law. Electronically signed by: Dio Mosley M.D. 03/17/2023 12:44 PM Discharge Plan Visit Data Chief Complaint: Neuro Symptoms/Deficit Stated Complaint: CONFUSION, RIGHT ARM NUMBNESS, HEADACHE ED Provider: Chun Carpneter Discharge Problem: Confusion, Numbness and tingling of right arm, Headache
[2023-03-17 11:45] LABS: iSTAT Creatinine 0.9 mg/dl (0.6-1.3); iSTAT Ionized Calcium 1.21 mmol/l (1.12-1.32); iSTAT Potassium 3.9 mmol/L (3.3-5.0)
[2023-03-17 12:05] LABS: Basophils # (auto) 0.01 K/uL (0-0.2); Basophils % (auto) 0.2 %; Eosinophils # (auto) 0.03 K/uL (0-0.50); Eosinophils % (auto) 0.6 %; Hematocrit (blood only) 46.1 % (37.0-47.0); Immature Granulocytes # (auto) 0.02 K/uL (0.01-0.20); Immature Granulocytes % (auto) 0.4 %; Lymphocytes # (auto) 1.29 K/uL (1.2-3.4); Lymphocytes % (auto) 24.8 %; Mean Corpuscular Hemoglobin 31.3 pg (25.0-34.0); Mean Corpuscular Hgb Conc 34.7 g/dL (32.0-36.0); Mean Platelet Volume 9.1 fL (9.4-12.4); Monocytes # (auto) 0.38 K/uL (0.11-0.59); Monocytes % (auto) 7.3 %; Neutrophils # (auto) 3.47 K/uL (1.40-6.50); Neutrophils % (auto) 66.7 %; Platelet Count 252 K/uL (130-400); RDW Coefficient of Variation 13.5 % (11.5-14.5); Red Blood Count 5.12 M/uL (4.20-5.40)
[2023-03-17 12:21] LABS: Albumin Globulin Ratio 1.6 (0.9-2); Albumin Level 4.6 gm/dl (3.4-5.0); BUN Creatinine Ratio 16.9 (10-20); Bilirubin,Total 0.6 mg/dl (0.2-1.0); Calcium 9.8 mg/dl (8.6-10.3); Creatinine Clr Calc Pharmacy 53.9 ml/min; Est GFR (African American) 82.2 ml/min; Est GFR (Non-African American) 70.9 ml/min; Globulin 2.9 gm/dl (2.5-4.0); Potassium 3.9 mmol/L (3.5-5.1); Total Protein 7.5 gm/dl (6.0-8.3)
[2023-03-17] MEDS ORDERED: OPTIRAY 320 500ml IV ONE (12:27)
[2023-03-17 12:29] LABS: Partial Thromboplastin Ratio 0.9; Partial Thromboplastin Time 25.1 Seconds (21.0-31.0); Prothrombin Time 10.5 Seconds (9.0-12.0)
--- NOTE | 2023-03-17 12:46 | CT Scan Report ---
UNENHANCED CT OF THE BRAIN; CT ANGIOGRAM OF THE BRAIN; CT ANGIOGRAM OF THE NECK CLINICAL HISTORY: Right upper extremity numbness. Headache. Neck pain. Change in mental status. COMPARISON STUDY: CT of the brain dated 10/13/2019. CT angiogram of the head and neck dated 10/13/20 19. TECHNIQUE: Unenhanced axial CT scan of the brain is performed. Subsequently, following the IV adminis tration of 120 of [address] 320, CT angiogram of the head and neck was performed from the aortic arch t o the vertex. Images are reviewed in the axial, sagittal, and coronal planes. 3-D MIPS images are cre ated and assessed. IV contrast was administered without complication. All measurements were calculate d based on NASCET criteria. A dose lowering technique was utilized adhering to the principles of ALA RA. CT DOSE: 1129.85 mGy.cm FINDINGS: Brain parenchyma: There is age related involutional change noting moderate subcortical and periventri cular microangiopathic disease. There is no hemorrhage, mass effect, or evidence of acute territorial ischemia by CT criteria. There is no evidence of enhancing mass lesion on the angiogram phase images . The ventricles, sulci, and cisterns are prominent secondary to additional change. Montes-white matter differentiation is preserved. No extra-axial fluid collection is seen. Thoracic aorta: Visualized portions of the thoracic aorta are normal in caliber. The aortic arch demo nstrates standard 3-vessel anatomy. Right carotid arterial system: The right common carotid artery is widely patent, as are the right int ernal and external carotid arteries. Left carotid arterial system: The left common carotid artery is widely patent, as are the left customer operations intern al and external carotid arteries. Vertebral arteries: The vertebral arteries are widely patent bilaterally and codominant. Subclavian arteries: Widely patent bilaterally. Intracranial vasculature: There is atherosclerotic calcification of the cavernous carotid arteries. T he [place] is developmentally complete. The internal carotid arteries are patent at the skul l base, as are the anterior and middle cerebral arteries bilaterally. The vertebrobasilar system and posterior cerebral arteries are widely patent. The vertebral arteries are codominant. There is no ane urysm, high-grade stenosis, or focal vessel cut off seen throughout the intracranial circulation. Jugular veins: Patent bilaterally. Dural sinuses: Patent. Lung apices: Partially visualized upper lobe lung parenchyma appears clear. Soft tissues: The visualized pharyngeal soft tissues are normal in appearance noting angiographic pha se technique. The oropharyngeal airway appears widely patent. The salivary and thyroid glands are nor mal in appearance. No cervical lymphadenopathy is seen. Skeletal structures: The skeletal structures are osteopenic. The calvarium appears intact. The cervic al spine is maintained noting mild spondylosis. No lytic or blastic lesion is seen. Orbits: The bony orbits are intact. Orbital contents are normal as visualized. Sinuses and mastoids: There is trace mucosal thickening in the right maxillary antrum. The remaining paranasal sinuses are clear. The mastoid air cells are well pneumatized. IMPRESSION: 1. There is no hemorrhage, mass effect, or evidence of acute territorial ischemia by CT criteria. 2. Unremarkable CT angiogram of the brain. 3. Unremarkable CT angiogram of the neck. ACT 112: Negative or not required by law. Electronically signed by: Dio Mosley M.D. 03/17/2023 12:44 PM
[2023-03-17 12:59] LABS: Appearance Urine Clear (Clear); Bilirubin Urine Negative (Negative); Blood Urine Negative (Negative); Color Urine Yellow; Glucose Urine UA Negative (Negative); Ketones Urine Negative (Negative); Leukocyte Esterase Urine Negative (Negative); Nitrite Urine Negative (Negative); Protein Urine Negative (Negative); Specific Gravity Urine 1.009 (1.000-1.030); Urobilinogen Urine Negative (Negative)
--- NOTE | 2023-03-17 13:36 | History & Physical Report ---
Date of Service March 17, 2023 Assessment & Plan (1) Stroke-like symptoms: Plan: -Admit to med/tele -The patient is currently afebrile, hypertensive at 172/100, and stable on RA -At this time the etiology of her symptoms including headache, intermittent confusion, word finding difficulties, and right arm numbness are unknown. The differential includes but is not limited to CVA, viral meningitis, hypertensive urgency, anxiety, right arm palsy due to compression -CT of the head and CTA of the head/neck were negative to acute findings, ECG WNL, labs WNL, no new rashes or lesions on skin exam, no focal neuro defects at this time, has been afebrile, no leukocytosis or significant neck stiffness -Will obtain MRI of the brain WO con and TTE for further evaluation, am fasting lipid panel and A1C -Fall precautions, neuro checks, ROM exercises, PT/OT -BL SCD's for DVT PPX to start, will wait to order chemical PPX until the MRI results -AM CBC, BMP (2) HTN (hypertension): Plan: -Has been hypertensive with systolics in the 170's-180's since arrival -BP typically stable without antihypertensives per the patient -Likely due to her anxiety but will not treat until we get the results of her MRI or she is significantly HTN/symptomatic -Continue to monitor on tele (3) Confusion: Plan: -See stroke-like symptoms (4) Shingles: Plan: -Completed a 7 day course of Valtrex 3 weeks ago for LUE shingles -Her rash is almost completely healed, no other signs of recurrence on skin inspection -Continue to monitor (5) Hyperlipidemia: Plan: -Not currently on a statin, will wait for MRI and lipid panel for now (6) Anxiety: Plan: -Poorly controlled -Currently only on prn ativan for anxiety/sleep and uses consistently -If the rest of her workup is negative would consider starting an antidepressant prior to discharge (7) Acid reflux: Plan: -Daily famotidine while admitted for stress ulcer PPX Plan The patient was discussed with Dr. Castaneda at the time of the admission History of Present Illness Chief Complaint: Stroke-like symptoms Primary Care Provider: DO Chula Lyon is a 72 year old female with a PMH significant for hyperlipidemia, hypertension, RCC S/P right partial nephrectomy 2002, allergic rhinitis, GERD vitamin D deficiency, IBS, osteoarthritis, insomnia, and vertigo who presented to the [facility] on 03/17/23 with stroke-like symptoms. In the ED the patient was found to be afebrile, initially hypertensive at 183/110, and stable on RA. Labs including CBC, CMP, UA, and Covid [address] of the head and CTA of the head/neck were read as "1. There is no hemorrhage, mass effect, or evidence of acute territorial ischemia by CT criteria. 2. Unremarkable CT angiogram of the brain. 3. Unremarkable CT angiogram of the neck.". ECG shows NSR without acute ST segment or T-wave changes. Prior to admission the patient was given 1gm IV tylenol and 4 mg IV zofran. At the time of the exam the patient was sitting in bed and very anxious/tearful due to her recent symptoms. She states that she was in her nadira l state of health last night before going to bed around 10 pm. She took one ativan tab to help her sleep. She woke up around 4-5 am today and states that she was feeling "off". She noted a mild headache on the top of her head and had some mild dizziness. She took a half a tab of her prn meclizine and went back to bed. She woke up again around 0600 and was able to walk to the bathroom and take a shower without issue. Her symptoms were still present but she went back to bed. She woke up for the final time around 0900 and noticed that her right arm was numb and she felt as she was confused and having trouble getting some words out when she called her friend. Of note, the patient was diagnosed with shingles of the left arm approximately 3 weeks ago. She completed a week of Valtrex and her rash is almost entirely healed. However, she is still experiencing significant pain in the left arm when her skin touched other objects. Because of this she has been sleeping on her right side. When asked, she does note that her right arm was under her when she woke up around 0900. She denies worsening of her headache, changes in vision, hearing, taste, smell, chest pain, SOB, abd pain, nausea, vomiting, diarrhea, dysuria, hematuria, melena, LE swelling, recent trauma, sensitivity to light. At this time her right arm numbness is improving but not completely resolved. While speaking with me she will have momentary lapses and distant memory. However, this seems to occur when she is very anxious. When I speak with her and calm her down her memory improves. She is a full code and would want her to make medical decisions for her if she could not make them herself. Please refer to Dr. Castaneda's attestation for any changes to the treatment plan Allergies Allergy/AdvReac Type Severity Reaction Status Date / Time adhesive Allergy Unknown WELTS Verified 09/26/22 07:59 Penicillins Allergy Unknown Rash Verified 09/26/22 07:59 Sulfa (Sulfonamide Allergy Unknown Rash Verified 09/26/22 07:59 Antibiotics) metoclopramide [From Reglan] AdvReac Severe Anaphylaxis Verified 09/26/22 07:59 Home Medications Medication Instructions Recorded Confirmed Type cholecalciferol (vitamin D3) 50 2,000 units PO HS 10/23/19 03/17/23 History mcg (2,000 unit) capsule multivitamin 1 tab PO DAILY 03/24/22 03/17/23 History meclizine 25 mg tablet 25 mg PO TID PRN dizziness #20 tabs 09/26/22 03/17/23 Rx mometasone 50 mcg/actuation nasal 1 - 2 spray intranasal DAILY #17 11/15/22 03/17/23 Rx spray grams lorazepam 0.5 mg tablet (Ativan) 0.5 mg PO HS #30 tabs 01/20/23 03/17/23 Rx Past Med/Surg History Medical History (Updated 03/18/23 @ 10:38 by Morteza Stephens MD) Acid reflux Allergic rhinitis Anxiety Arthritis Diverticulosis of colon History of aspiration pneumonia S/P lap mireya (summer 2018)/no issues since 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- "corrected itself"/no further details/follows with cardiology History of kidney cancer (2001) 2001 - s/p partial nephrectomy History of TMJ syndrome mild limited ROM Hyperlipidemia Insomnia Irritable bowel syndrome Prediabetes Renal cyst left Vertigo Vitamin D deficiency Surgical History H/O partial nephrectomy (2001) RIGHT History of anesthesia reaction "TAKES AWHILE TO WAKE UP" History of cardiac cath 25 YRS AGO= CONGENTIAL HEART DISEASE FOUND AND "CORRECTED ITSELF" History of fundoplication History of hernia repair History of incisional hernia repair (11/01/19) open incisional hernia repair History of laparoscopy BURNED OFF ENDOMETRIOSIS History of oophorectomy, unilateral right side Nausea and vomiting after administration of anesthetic agent S/P cholecystectomy (05/20/19) LAP MIREYA S/P ERCP (05/18/19) HX OF X3 Family History Mother , age 46 Colon cancer Thyroid disease Colorectal cancer Father Pneumonia Denies family history of Ovarian cancer Prostate cancer Myocardial infarction Breast cancer Lung cancer Social History Smoking Status: Never smoker Second Hand Exposure: Yes ( A CHILD); Hx Alcohol Use: Yes Alcohol type: beer Alcohol Intake Frequency: Monthly or Less Hx Substance Use: No Preferred Language: Israeli Communication Ability: Effective Visual Impairment: No Limitations Hearing Ability: Normal Rn Testing Required: No Beliefs That Will Affect Care: None marital status: Current Living Situation: Spouse current occupational status: retired Feels Safe at Home: Yes Safety Concerns: Feels Safe At This Time Childhood Exposure to Second-Hand Smoke: Yes Diet Comment: regular caffeine: Yes (1 or 2 cups of tea a day) during the past year weight has: remained stable Dental Care, Regularly: Yes Physical Activity Frequency: 1-2 Times per Week Seatbelt Use: always Sunscreen Use: Yes Assistive Devices: None Physical Exam Physical Exam: Physical Exam: General: In no acute distress but anxious, stated age, well-nourished, good hygiene HEENT: Normocephalic, atraumatic, no scleral icterus, pupils around round, symmetrical, and reactive to light, moist mucus membranes, trachea midline, no thyromegaly Chest/Pulm: No respiratory distress, symmetrical chest expansion, clear breath sounds throughout Cardiac: RRR, no murmurs noted Abdomen: Negative for ascites and bruising, normoactive bowel sounds, soft, non-tender to palpation throughout Musculoskeletal: Symmetrical and without signs of acute trauma, upper and lower extremities with full ROM, no atrophy, spasticity, or flaccidity, able to flex neck without issue Extremities: Radial, dorsalis pedis, and posterior tibial pulses are intact and symmetrical, no edema noted in the BL LE's Skin: Patient with almost completely healed vesicular rash on the left upper extremity from the mid humerus running distally to the left forearm. No signs of erythema or drainage. No other signs of rash or irritation on inspection of her skin Neuro: Alert and oriented to person, place, month, year, and president, no focal defects, CN II-XII tested and intact, cerebellar testing and pronator drift negative, no tremors noted, symmetrical strength in the BL upper and lower extremities Psych: Very anxious but able to be redirected easily, polite and cooperative during the exam Results & Data Results & Data Vital Signs (Past 12 Hours) Vital Signs Temp Pulse Pulse Resp BP BP Pulse Ox 03/17/23 12:43 78 18 180/93 H 96 03/17/23 11:57 86 03/17/23 11:40 80 18 171/107 H 97 03/17/23 11:16 36.8 C 108 H 20 183/110 H 97 O2 Del Method 03/17/23 12:43 Room Air 03/17/23 11:57 03/17/23 11:40 Room Air 03/17/23 11:16 Room Air Laboratory Results Abnormal lab results 03/17/23 03/17/23 03/17/23 Range/Units 11:28 11:28 11:33 MPV 9.1 L (9.4-12.4) fL Glucose 120 H (70-99(Fasting)) mg/dl POC Glucose (other) 128 H (70-99) mg/dl Diagnostic Findings Head CT 03/17/23 11:[address] OF THE BRAIN; CT ANGIOGRAM OF THE BRAIN; CT ANGIOGRAM OF THE NECK CLINICAL HISTORY: Right upper extremity numbness. Headache. Neck pain. Change in mental status. COMPARISON STUDY: CT of the brain dated 10/13/2019. CT angiogram of the head and neck dated 10/13/2019. TECHNIQUE: Unenhanced axial CT scan of the brain is performed. Subsequently, following the IV administration of 120 of Optiray 320, CT angiogram of the head and neck was performed from the aortic arch to the vertex. Images are reviewed in the axial, sagittal, and coronal planes. 3-D MIPS images are created and assessed. IV contrast was administered without complication. All measurements were calculated based on NASCET criteria. A dose lowering technique was utilized adhering to the principles of ALARA. CT DOSE: 1129.85 mGy.cm FINDINGS: Brain parenchyma: There is age related involutional change noting moderate subcortical and periventricular microangiopathic disease. There is no hemorrhage, mass effect, or evidence of acute territorial ischemia by CT criteria. There is no evidence of enhancing mass lesion on the angiogram phase images. The ventricles, sulci, and cisterns are prominent secondary to additional change. Montes-white matter differentiation is preserved. No extra- axial fluid collection is seen. Thoracic aorta: Visualized portions of the thoracic aorta are normal in caliber. The aortic arch demonstrates standard 3-vessel anatomy. Right carotid arterial system: The right common carotid artery is widely patent, as are the right internal and external carotid arteries. Left carotid arterial system: The left common carotid artery is widely patent, as are the left internal and external carotid arteries. Vertebral arteries: The vertebral arteries are widely patent bilaterally and codominant. Subclavian arteries: Widely patent bilaterally. Intracranial vasculature: There is atherosclerotic calcification of the cavernous carotid arteries. The [place] is developmentally complete. The internal carotid arteries are patent at the skull base, as are the anterior and middle cerebral arteries bilaterally. The vertebrobasilar system and posterior cerebral arteries are widely patent. The vertebral arteries are codominant. There is no aneurysm, high-grade stenosis, or focal vessel cut off seen throughout the intracranial circulation. Jugular veins: Patent bilaterally. Dural sinuses: Patent. Lung apices: Partially visualized upper lobe lung parenchyma appears clear. Soft tissues: The visualized pharyngeal soft tissues are normal in appearance noting angiographic phase technique. The oropharyngeal airway appears widely patent. The salivary and thyroid glands are normal in appearance. No cervical lymphadenopathy is seen. Skeletal structures: The skeletal structures are osteopenic. The calvarium appears intact. The cervical spine is maintained noting mild spondylosis. No lytic or blastic lesion is seen. Orbits: The bony orbits are intact. Orbital contents are normal as visualized. Sinuses and mastoids: There is trace mucosal thickening in the right maxillary antrum. The remaining paranasal sinuses are clear. The mastoid air cells are well pneumatized. IMPRESSION: 1. There is no hemorrhage, mass effect, or evidence of acute territorial ischemia by CT criteria. 2. Unremarkable CT angiogram of the brain. 3. Unremarkable CT angiogram of the neck. ACT 112: Negative or not required by law. Electronically signed by: Dio Mosley M.D. 03/17/2023 12:44 PM Head CTA 03/17/23 11:[address] OF THE BRAIN; CT ANGIOGRAM OF THE BRAIN; CT ANGIOGRAM OF THE NECK CLINICAL HISTORY: Right upper extremity numbness. Headache. Neck pain. Change in mental status. COMPARISON STUDY: CT of the brain dated 10/13/2019. CT angiogram of the head and neck dated 10/13/2019. TECHNIQUE: Unenhanced axial CT scan of the brain is performed. Subsequently, following the IV administration of 120 of Optiray 320, CT angiogram of the head and neck was performed from the aortic arch to the vertex. Images are reviewed in the axial, sagittal, and coronal planes. 3-D MIPS images are created and assessed. IV contrast was administered without complication. All measurements were calculated based on NASCET criteria. A dose lowering technique was utilized adhering to the principles of ALARA. CT DOSE: 1129.85 mGy.cm FINDINGS: Brain parenchyma: There is age related involutional change noting moderate subcortical and periventricular microangiopathic disease. There is no hemorrhage, mass effect, or evidence of acute territorial ischemia by CT criteria. There is no evidence of enhancing mass lesion on the angiogram phase images. The ventricles, sulci, and cisterns are prominent secondary to additional change. Montes-white matter differentiation is preserved. No extra- axial fluid collection is seen. Thoracic aorta: Visualized portions of the thoracic aorta are normal in caliber. The aortic arch demonstrates standard 3-vessel anatomy. Right carotid arterial system: The right common carotid artery is widely patent, as are the right internal and external carotid arteries. Left carotid arterial system: The left common carotid artery is widely patent, as are the left internal and external carotid arteries. Vertebral arteries: The vertebral arteries are widely patent bilaterally and codominant. Subclavian arteries: Widely patent bilaterally. Intracranial vasculature: There is atherosclerotic calcification of the cavernous carotid arteries. The [place] is developmentally complete. The internal carotid arteries are patent at the skull base, as are the anterior and middle cerebral arteries bilaterally. The vertebrobasilar system and posterior cerebral arteries are widely patent. The vertebral arteries are codominant. There is no aneurysm, high-grade stenosis, or focal vessel cut off seen throughout the intracranial circulation. Jugular veins: Patent bilaterally. Dural sinuses: Patent. Lung apices: Partially visualized upper lobe lung parenchyma appears clear. Soft tissues: The visualized pharyngeal soft tissues are normal in appearance noting angiographic phase technique. The oropharyngeal airway appears widely patent. The salivary and thyroid glands are normal in appearance. No cervical lymphadenopathy is seen. Skeletal structures: The skeletal structures are osteopenic. The calvarium appears intact. The cervical spine is maintained noting mild spondylosis. No lytic or blastic lesion is seen. Orbits: The bony orbits are intact. Orbital contents are normal as visualized. Sinuses and mastoids: There is trace mucosal thickening in the right maxillary antrum. The remaining paranasal sinuses are clear. The mastoid air cells are well pneumatized. IMPRESSION: 1. There is no hemorrhage, mass effect, or evidence of acute territorial ischemia by CT criteria. 2. Unremarkable CT angiogram of the brain. 3. Unremarkable CT angiogram of the neck. ACT 112: Negative or not required by law. Electronically signed by: Dio Mosley M.D. 03/17/2023 12:44 PM Neck CTA 03/17/23 11:[address] OF THE BRAIN; CT ANGIOGRAM OF THE BRAIN; CT ANGIOGRAM OF THE NECK CLINICAL HISTORY: Right upper extremity numbness. Headache. Neck pain. Change in mental status. COMPARISON STUDY: CT of the brain dated 10/13/2019. CT angiogram of the head and neck dated 10/13/2019. TECHNIQUE: Unenhanced axial CT scan of the brain is performed. Subsequently, following the IV administration of 120 of Optiray 320, CT angiogram of the head and neck was performed from the aortic arch to the vertex. Images are reviewed in the axial, sagittal, and coronal planes. 3-D MIPS images are created and assessed. IV contrast was administered without complication. All measurements were calculated based on NASCET criteria. A dose lowering technique was utilized adhering to the principles of ALARA. CT DOSE: 1129.85 mGy.cm FINDINGS: Brain parenchyma: There is age related involutional change noting moderate subcortical and periventricular microangiopathic disease. There is no hemorrhage, mass effect, or evidence of acute territorial ischemia by CT criteria. There is no evidence of enhancing mass lesion on the angiogram phase images. The ventricles, sulci, and cisterns are prominent secondary to additional change. Montes-white matter differentiation is preserved. No extra- axial fluid collection is seen. Thoracic aorta: Visualized portions of the thoracic aorta are normal in caliber. The aortic arch demonstrates standard 3-vessel anatomy. Right carotid arterial system: The right common carotid artery is widely patent, as are the right internal and external carotid arteries. Left carotid arterial system: The left common carotid artery is widely patent, as are the left internal and external carotid arteries. Vertebral arteries: The vertebral arteries are widely patent bilaterally and codominant. Subclavian arteries: Widely patent bilaterally. Intracranial vasculature: There is atherosclerotic calcification of the cavernous carotid arteries. The [place] is developmentally complete. The internal carotid arteries are patent at the skull base, as are the anterior and middle cerebral arteries bilaterally. The vertebrobasilar system and posterior cerebral arteries are widely patent. The vertebral arteries are codominant. There is no aneurysm, high-grade stenosis, or focal vessel cut off seen throughout the intracranial circulation. Jugular veins: Patent bilaterally. Dural sinuses: Patent. Lung apices: Partially visualized upper lobe lung parenchyma appears clear. Soft tissues: The visualized pharyngeal soft tissues are normal in appearance noting angiographic phase technique. The oropharyngeal airway appears widely patent. The salivary and thyroid glands are normal in appearance. No cervical lymphadenopathy is seen. Skeletal structures: The skeletal structures are osteopenic. The calvarium appears intact. The cervical spine is maintained noting mild spondylosis. No lytic or blastic lesion is seen. Orbits: The bony orbits are intact. Orbital contents are normal as visualized. Sinuses and mastoids: There is trace mucosal thickening in the right maxillary antrum. The remaining paranasal sinuses are clear. The mastoid air cells are well pneumatized. IMPRESSION: 1. There is no hemorrhage, mass effect, or evidence of acute territorial ischemia by CT criteria. 2. Unremarkable CT angiogram of the brain. 3. Unremarkable CT angiogram of the neck. ACT 112: Negative or not required by law. Electronically signed by: Dio Mosley M.D. 03/17/2023 12:44 PM ECG Additional Comments: Normal sinus rhythm Normal ECG When compared with ECG of 13-OCT-2019 01:23, No significant change was found Code Status & VTE Plan Code Status Full code VTE Prophylaxis Plan VTE Prophylaxis will be ordered: Yes Supervising Physician Co-Signing Physician Notes I personally saw and examined the patient. I verified all soares points and agree with Eduardo Taylor PA-C with the following exceptions and/or additions: 72 year old female with recent shingles on left arm presents waking up with right arm complete numbness and word finding difficulty. vs. confusion. Took meclizine last night which she doesn't normally take with her usual Ativan. Sleeping more on right side recently due to shingles on left arm. O/E Anxious appearing, no pronator drift, CN 2-> 12 intact with normal speech exam, Right arm non-specific numbness which appears more distal and non-dermatomal but patient finding it hard to describe, C8/T1 dermatomal shingles pain on left arm, HS RRR, no murmurs, Chest CTAB, Abdo SNT A/P Stroke-like symptoms - Brain MRI, TTE, consult neurology. Alternative etiology of radiculopathy due to sleeping on that side but no specific dermatome on exam and no associated weakness. Possible meclizine causing more confusion than dysphasia this morning but difficult for patient to delineate between the two. Given ongoing symptoms I would expect to see something on brain MRI if they persistent on right arm - TIA less likely given ongoing numbness. PG Care Time/CCT Total # of Minutes Spent Total Time Spent with Patient: Total time spent is greater than 50% in coordination of care (as documented) at patient's floor/unit and/or counseling patient: Coding [place] [address] INT INP/OBS CARE 3/75MIN Patient Type Established Medical Decision Making Moderate Complexity Diagnoses Stroke-like symptoms R29.90 HTN (hypertension) I10 Confusion R41.0 Shingles B02.9 Hyperlipidemia E78.5 Anxiety F41.9 Acid reflux K21.9
[2023-03-17] MEDS ORDERED: PHARMACIST DISCHARGE MED REC CONSULT PRN (13:38)
--- NOTE | 2023-03-17 16:52 | Magnetic Resonance Report ---
MR brain wo con HISTORY: 72 years-old Female stroke workup acute headache with confusion and right arm numbness COMPARISON: Head CT of same day, brain MRI 10/13/2019 TECHNIQUE: Multiplanar multisequence MRI of the brain was obtained without the use of IV contrast. FINDINGS: Administrative Officer localizer images demonstrate no gross extracranial abnormality. No restricted diffusion to sugg est acute or subacute infarct. Midline structures appear unremarkable. Degenerative changes are noted about the imaged cervical spine. No acute intracranial hemorrhage, midline shift, abnormal extra-axial collection, hydrocephalus or in tracranial mass. Moderate T2/FLAIR hyperintensities throughout the white matter have progressed from prior. Major flow voids at the level the skull base appear patent. Mastoid air cells are clear. No si gnificant paranasal sinus disease. The skull, soft tissues and orbits are unremarkable. IMPRESSION: 1. No acute intracranial abnormality. No acute or subacute infarct. 2. Involutional changes with moderate chronic microvascular ischemic disease, worsened from the 2019 comparison. ACT 112: Negative or not required by law. The above report was generated using voice recognition software. It may contain grammatical, syntax o r spelling errors. Electronically signed by: Gildardo Haro M.D. 03/17/2023 4:51 PM
--- NOTE | 2023-03-17 17:49 | XCELERA ---
[id number]
--- NOTE | 2023-03-17 18:08 | Electrocardiogram Report ---
Test Reason : Blood Pressure : / mmHG Vent. Rate : 079 BPM Atrial Rate : 079 BPM P-R Int : 150 ms QRS Dur : 074 ms QT Int : 352 ms P-R-T Axes : 026 018 015 degrees QTc Int : 403 ms Normal sinus rhythm Normal ECG When compared with ECG of 13-OCT-2019 01:23, No significant change was found Confirmed by Davi Eastman ([id number]) on 03/17/2023 6:08:07 PM Referred By: Confirmed By:Guillermo Eastman
[2023-03-17] MEDS: FAMOTIDINE 20 MG in SYRINGE 3 ML IV SCH (18:48)
[2023-03-17] MEDS: ACETAMINOPHEN 325 MG TAB PO PRN (18:49)
[2023-03-17] MEDS ORDERED: LORazepam 0.5 MG TAB PO SCH (21:00)
[2023-03-18] MEDS: ACETAMINOPHEN 325 MG TAB PO PRN ×2 (01:38→06:40)
[2023-03-18 08:18] LABS: Basophils # (auto) 0.01 K/uL (0-0.2); Basophils % (auto) 0.3 %; Eosinophils # (auto) 0.09 K/uL (0-0.50); Eosinophils % (auto) 2.4 %; Hematocrit (blood only) 41.7 % (37.0-47.0); Hemoglobin 14.5 g/dl (12.0-16.0); Immature Granulocytes # (auto) 0.01 K/uL (0.01-0.20); Immature Granulocytes % (auto) 0.3 %; Lymphocytes # (auto) 1.62 K/uL (1.2-3.4); Lymphocytes % (auto) 43.2 %; Mean Corpuscular Hemoglobin 31.5 pg (25.0-34.0); Mean Corpuscular Hgb Conc 34.8 g/dL (32.0-36.0); Mean Corpuscular Volume 90.5 fL (80.0-100.0); Monocytes # (auto) 0.47 K/uL (0.11-0.59); Monocytes % (auto) 12.5 %; Neutrophils # (auto) 1.55 K/uL (1.40-6.50); Neutrophils % (auto) 41.3 %; Platelet Count 223 K/uL (130-400); RDW Coefficient of Variation 13.5 % (11.5-14.5); RDW Standard Deviation 44.4 fL (36.4-46.3); Red Blood Count 4.61 M/uL (4.20-5.40); White Blood Count 3.75 K/ul (4.8-10.8)
[2023-03-18 08:33] LABS: Chol HDL Ratio 3.6 (0-5); Creatinine Clr Calc Pharmacy 48.6 ml/min; Est GFR (African American) 72.6 ml/min; Est GFR (Non-African American) 62.6 ml/min; Potassium 4.1 mmol/L (3.5-5.1)
[2023-03-18] MEDS: FAMOTIDINE 20 MG in SYRINGE 3 ML IV SCH (08:34)
[2023-03-18 10:20] LABS: Estimated Average Glucose 108 mg/dl; Hemoglobin A1C 5.4 % (4.5-5.6)
--- NOTE | 2023-03-18 10:44 | Neurology Consultation ---
Date of Consultation March 18, 2023 Assessment & Plan (1) Numbness and tingling of right arm: (2) Expressive aphasia: (3) Headache: (4) HTN (hypertension): (5) Chronic cerebral ischemia: (6) Acute pain associated with herpes zoster: Plan patient had the onset March 17 of some word-finding difficulties ( type of expressive aphasia ) numbness of the right upper extremity, vertiginous symptoms and a nonspecific headache. The patient's symptoms have resolved an MRI of the brain was unremarkable for acute stroke. CT angiography of the head that were unremarkable as well. Echocardiogram was unremarkable. The patient had significant hypertension on admission but this has resolved. MRI did show chronic cerebral ischemia of a nonspecific nature. The patient does have a history of shingles in the left upper extremity starting February 25 now left with some pain in a partial C7 distribution. Overall, I think this patient has had a migraine variant and this was not a stroke or TIA. It was probably triggered by hypertension. She is back to baseline. Recommendations: 1. 81 mg aspirin tablet daily. 2. If a blood pressure medication is needed, my choice would be verapamil ( 120 mg ER once daily ) as this is my drug of choice to prevent vasospasm /migraines. 3. consider gabapentin for post herpetic neuralgia pain ( suggest 300 mg 3 times a day for now and taper off when able) 4. please contact me if I can be of further assistance on this case Overall, I spent a total of 75 minutes with this case including review of records, review of CT and MRI films, direct evaluation the patient at bedside, reports generation, and discussion of the case with patient and at bedside, RN at bedside, and Dr. Reddy including differential diagnosis and treatment options. History of Present Illness Reason for Consultation: patient is a 72-year-old, who I was asked to see at the request of Eduardo Taylor PA-C Requesting Physician: Eduardo Taylor PA-C Attending Physician: Ezekiel Reddy History of Present Illness patient is a 72-year-old with history of renal cancer in 2001 post partial nephrectomy resulting in a presumed cure. She did not receive chemotherapy or radiation. She was admitted in September of 2019 with vertigo and MRI showed no stroke. There was moderate old small vessel ischemic disease noted at that time. Patient tells me she does not have a history of hypertension, diabetes, heart disease, or previous stroke. She does have a history of migraines. These started in her 30s and they can occur anywhere from once every 3 months to several times in a week. Typically, she will start out with sparkling flashing lights lasting anywhere from 15-30 minutes. Sometimes she would get a dull bifrontal headache afterwards but many times she would not. Caffeine and Tylenol would resolve these issues. Her most recent event was about 2 months ago. Patient had the onset of pain and shingles February 25 in her left upper extremity. The lesions started close to her axilla and she felt pain and tingling down along the forearm into the index, middle, and ring fingers. She was put on Valtrex and the lesions resolved quickly. Unfortunately she has had intense pain intermittently in a distribution with sounds like a partial C7. She did not have any lesions up near her neck. She went to bed on the evening of March 16 feeling reasonably well although her arm was sore. She woke up around 4:00 a.m. on March 17 with some nonspecific vertiginous feelings. She took half of meclizine and went back to sleep. Around 8 o'clock that morning she awoke and had some nausea without vomiting, and vertiginous feelings without andres vertigo an achy feeling on the top of her head and some pain in her neck ( she does have chronic intermittent neck pain ). Right upper extremity had some numbness particularly in the hand. She felt confused and could not get words out correctly. She arrived at the emergency room on March 17 at 11:16 a.m. with a temperature of 36.8, pulse 108, respiratory rate 20, blood pressure 183/110, and O2 saturation 97%. she had some word-finding difficulties/ confusion. Exam was remarkable for some decreased sensation of the right upper extremity and some slight expressive a aphasia. CBC and Chem profile were largely unremarkable. CT scan of the head was unremarkable CT angiography of the head and neck were normal with no vascular anomalies or stenoses. Echocardiogram showed no abnormalities. MRI of the brain showed moderate old small vessel ischemic disease but no acute stroke. She was slightly progressed compared to the previous study of September 2019. I reviewed the MRI films. Sometime in the evening of March 17 all her symptoms resolved and she has been back to normal since. This morning she has no new symptoms. CBC and Chem profile this morning were unremarkable. Hemoglobin A1c was 5.4 and total cholesterol was 193. Triglycerides were 141. blood pressure this morning is 121/82. Allergies Allergy/AdvReac Type Severity Reaction Status Date / Time adhesive Allergy Unknown WELTS Verified 09/26/22 07:59 Penicillins Allergy Unknown Rash Verified 09/26/22 07:59 Sulfa (Sulfonamide Allergy Unknown Rash Verified 09/26/22 07:59 Antibiotics) metoclopramide [From Reglan] AdvReac Severe Anaphylaxis Verified 09/26/22 07:59 Home Medications Medication Instructions Recorded Confirmed Type cholecalciferol (vitamin D3) 50 2,000 units PO HS 10/23/19 03/17/23 History mcg (2,000 unit) capsule multivitamin 1 tab PO DAILY 03/24/22 03/17/23 History meclizine 25 mg tablet 25 mg PO TID PRN dizziness #20 tabs 09/26/22 03/17/23 Rx mometasone 50 mcg/actuation nasal 1 - 2 spray intranasal DAILY #17 11/15/22 03/17/23 Rx spray grams lorazepam 0.5 mg tablet (Ativan) 0.5 mg PO HS #30 tabs 01/20/23 03/17/23 Rx Patient History Medical History (Updated 03/18/23 @ 10:38 by Morteza Stephens MD) Acid reflux Allergic rhinitis Anxiety Arthritis Diverticulosis of colon History of aspiration pneumonia S/P lap mireya (summer 2018)/no issues since 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- "corrected itself"/no further details/follows with cardiology History of kidney cancer (2001) 2001 - s/p partial nephrectomy History of TMJ syndrome mild limited ROM Hyperlipidemia Insomnia Irritable bowel syndrome Prediabetes Renal cyst left Vertigo Vitamin D deficiency Surgical History H/O partial nephrectomy (2001) RIGHT History of anesthesia reaction "TAKES AWHILE TO WAKE UP" History of cardiac cath 25 YRS AGO= CONGENTIAL HEART DISEASE FOUND AND "CORRECTED ITSELF" History of fundoplication History of hernia repair History of incisional hernia repair (11/01/19) open incisional hernia repair History of laparoscopy BURNED OFF ENDOMETRIOSIS History of oophorectomy, unilateral right side Nausea and vomiting after administration of anesthetic agent S/P cholecystectomy (05/20/19) LAP MIREYA S/P ERCP (05/18/19) HX OF X3 Family History Mother , age 46 Colon cancer Thyroid disease Colorectal cancer Father Pneumonia Denies family history of Ovarian cancer Prostate cancer Myocardial infarction Breast cancer Lung cancer Social History Smoking Status: Never smoker Second Hand Exposure: Yes ( A CHILD); Hx Alcohol Use: Yes Alcohol type: beer Alcohol Intake Frequency: Monthly or Less Hx Substance Use: No Preferred Language: Croatian Communication Ability: Effective Visual Impairment: No Limitations Hearing Ability: Normal Medical Review Coordinator Required: No Beliefs That Will Affect Care: None marital status: Current Living Situation: Spouse current occupational status: retired Feels Safe at Home: Yes Safety Concerns: Feels Safe At This Time Childhood Exposure to Second-Hand Smoke: Yes Diet Comment: regular caffeine: Yes (1 or 2 cups of tea a day) during the past year weight has: remained stable Dental Care, Regularly: Yes Physical Activity Frequency: 1-2 Times per Week Seatbelt Use: always Sunscreen Use: Yes Assistive Devices: None Review of Systems Constitutional: no fever, no fatigue and no weakness Eyes: no diplopia, no eye pain and no worsening vision Ear, Nose, Mouth, Throat: no ear pain, no tinnitus, no hearing loss, no dizziness, no snoring, no hoarseness and no dysphagia Respiratory: no cough and no dyspnea Cardiovascular: no chest pain, no palpitations and no lightheadedness Gastrointestinal: no abdominal pain, no nausea and no vomiting Genitourinary: no dysuria, no urinary frequency and no urinary incontinence Musculoskeletal: no back pain, no neck pain, no radicular pain, no joint pain and no myalgia Integumentary: no rash and no lesions Neurologic: no gait abnormality, no localized weakness, no generalized weakness, no tingling, no numbness, no tremor(s), no abnormal movements, no headache(s), no abnormal speech, no confusion and no memory loss Psychiatric: no depression, no irritability, no anxiety, no difficulty concentrating, no confusion and no hallucinations Endocrine: no fatigue and no flushing Hematologic / Lymphatic: no easy bleeding and no easy bruising Allergy / Immunological: no urticaria and no problem reported Exam (Neuro) Physical Exam: The patient is right-handed. The patient is awake, alert, and attentive. Speech is normal without any aphasia or dysarthria. The patient can name objects, repeat phrases, and has normal spontaneous speech. Mentation and thought processes are intact, with orientation to person, place and time, and normal fund of knowledge. Attention and concentration are normal. Mood and affect are normal and appropriate. General appearance and grooming are normal. Short and long-term memory are intact. Pupils are 4 mm bilaterally and reactive to light. Extraocular eye muscles are intact without nystagmus. Visual acuity and visual engel seem normal grossly to confrontation. There are no deficits to sensation in the face in all 3 distributions of the fifth cranial nerve bilaterally. Corneal reflexes are positive bilaterally. Facial strength and symmetry was normal bilaterally. Hearing seems normal bilaterally. Palate moves well without asymmetry. There is normal sternocleidomastoid and trapezius (shoulder shrug) strength bilaterally. Tongue is midline with good strength bilaterally. Neck has a full range of motion without discomfort. There are no cervical bruits bilaterally. There are no cranial or ocular bruits. Heart is without murmur. There is a regular rhythm and rate. Cervical, thoracic, and lumbar spine are nontender to palpation. Gait is narrow based, with good arm swing, turns, and stance. With outstretched arms there is no drift. There are no resting, postural, or action tremors. There is no ataxia with finger to nose testing. There is good facility in the hands. No other abnormal involuntary movements are noted. Motor strength is 5/5 diffusely in the arms bilaterally including deltoids, biceps, triceps, brachioradialis, wrist flexors and extensors, afternoon nanny, and intrinsic hand muscles. Motor strength is 5/5 diffusely in the legs bilaterally including hip flexors, quadriceps, hamstrings, gastrocnemius, tibialis anterior, tibialis posterior, and Peroneii muscles. Toe extensors are normal and there is good bulk in the extensor digitorum brevis muscles bilaterally. The limbs have good tone without rigidity or spasticity. There is no atrophy noted in the muscles. Muscle bulk is normal, there is no tenderness to palpation, no myotonia to percussion, and no fasciculations seen. Sensory examination is intact to touch and pin throughout all 4 limbs diffusely. Reflexes are 2/4 in the biceps, triceps, brachioradialis, quadriceps, and Achilles tendons bilaterally. There is no clonus bilaterally. Toes are downgoing with plantar stimulation bilaterally. Peripheral pulses are present and of normal quality distally in all 4 limbs. There is no peripheral edema noted in the limbs. Results & Data Vital Signs (Past 12 Hours) Vital Signs Temp Pulse Pulse Resp BP Pulse Ox O2 Del Method 03/18/23 10:16 69 03/18/23 08:09 36.8 C 69 20 121/82 94 Room Air 03/18/23 03:31 36.7 C 73 16 107/65 93 Room Air 03/18/23 00:29 72 PG Care Time/CCT Total # of Minutes Spent Total Time Spent with Patient: Total time spent is greater than 50% in coordination of care (as documented) at patient's floor/unit and/or counseling patient: Coding Level of Care Code 61558 INT INP/OBS CARE 3/75MIN Diagnoses Numbness and tingling of right arm R20.0; R20.2 Expressive aphasia R47.01 Headache R51.9 HTN (hypertension) I10 Chronic cerebral ischemia I67.82 Acute pain associated with herpes zoster B02.9 Time Spent (min) 75
[2023-03-18] MEDS ORDERED: STROKE PATIENT DISCHARGE STA (14:23)
--- NOTE | 2023-03-18 15:02 | Discharge Summary ---
Date of Service March 18, 2023 Admission HPI Per Admitting Provider Chula is a 72 year old female with a PMH significant for hyperlipidemia, hypertension, RCC S/P right partial nephrectomy 2001, allergic rhinitis, GERD vitamin D deficiency, IBS, osteoarthritis, insomnia, and vertigo who presented to the [facility] ED on 03/17/23 with stroke-like symptoms. In the ED the patient was found to be afebrile, initially hypertensive at 183/110, and stable on RA. Labs including CBC, CMP, UA, and Covid [address] of the head and CTA of the head/neck were read as "1. There is no hemorrhage, mass effect, or evidence of acute territorial ischemia by CT criteria. 2. Unremarkable CT angiogram of the brain. 3. Unremarkable CT angiogram of the neck.". ECG shows NSR without acute ST segment or T-wave changes. Prior to admission the patient was given 1gm IV tylenol and 4 mg IV zofran. At the time of the exam the patient was sitting in bed and very anxious/tearful due to her recent symptoms. She states that she was in her normal state of health last night before going to bed around 10 pm. She took one ativan tab to help her sleep. She woke up around 4-5 am today and states that she was feeling "off". She noted a mild headache on the top of her head and had some mild dizziness. She took a half a tab of her prn meclizine and went back to bed. She woke up again around 0600 and was able to walk to the bathroom and take a shower without issue. Her symptoms were still present but she went back to bed. She woke up for the final time around 0900 and noticed that her right arm was numb and she felt as she was confused and having trouble getting some words out when she called her friend. Of note, the patient was diagnosed with shingles of the left arm approximately 3 weeks ago. She completed a week of Valtrex and her rash is almost entirely healed. However, she is still experiencing significant pain in the left arm when her skin touched other objects. Because of this she has been sleeping on her right side. When asked, she does note that her right arm was under her when she woke up around 0900. She denies worsening of her headache, changes in vision, hearing, taste, smell, chest pain, SOB, abd pain, nausea, vomiting, diarrhea, dysuria, hematuria, melena, LE swelling, recent trauma, sensitivity to light. At this time her right arm numbness is improving but not completely resolved. While speaking with me she will have momentary lapses and distant memory. However, this seems to occur when she is very anxious. When I speak with her and calm her down her memory improves. She is a full code and would want her to make medical decisions for her if she could not make them herself. Please refer to Dr. Castaneda's attestation for any changes to the treatment plan Discharge Exam Physical Exam: General: In no acute distress but anxious, stated age, well-nourished, good hygiene HEENT: Normocephalic, atraumatic, no scleral icterus, pupils around round, symmetrical, and reactive to light, moist mucus membranes, trachea midline, no thyromegaly Chest/Pulm: No respiratory distress, symmetrical chest expansion, clear breath sounds throughout Cardiac: RRR, no murmurs noted Abdomen: Negative for ascites and bruising, normoactive bowel sounds, soft, non-tender to palpation throughout Musculoskeletal: Symmetrical and without signs of acute trauma, upper and lower extremities with full ROM, no atrophy, spasticity, or flaccidity, able to flex neck without issue Extremities: Radial, dorsalis pedis, and posterior tibial pulses are intact and symmetrical, no edema noted in the BL LE's Skin: Patient with almost completely healed vesicular rash on the left upper extremity from the mid humerus running distally to the left forearm. No signs of erythema or drainage. No other signs of rash or irritation on inspection of her skin Neuro: Alert and oriented to person, place, month, year, and president, no focal defects, CN II-XII tested and intact, cerebellar testing and pronator drift negative, no tremors noted, symmetrical strength in the BL upper and lower extremities Psych: Very anxious but able to be redirected easily, polite and cooperative during the exam Discharge Data Allergies Allergy/AdvReac Type Severity Reaction Status Date / Time adhesive Allergy Unknown WELTS Verified 09/26/22 07:59 Penicillins Allergy Unknown Rash Verified 09/26/22 07:59 Sulfa (Sulfonamide Allergy Unknown Rash Verified 09/26/22 07:59 Antibiotics) metoclopramide [From Reglan] AdvReac Severe Anaphylaxis Verified 09/26/22 07:59 Consultations 03/17/23 13:40 ED Decision to Admit Stat 03/17/23 20:16 Consult Neurology Routine Ordered Studies 03/17/23 11:29 CT angio head w con Stat CT angio neck with con Stat CT head/brain wo con Stat 03/17/23 14:10 MRI Brain [MR brain wo con] Stat Hospital Course (1) Stroke-like symptoms: -Admit to med/tele -The patient is currently afebrile, hypertensive at 172/100, and stable on RA -At this time the etiology of her symptoms including headache, intermittent confusion, word finding difficulties, and right arm numbness are unknown. The differential includes but is not limited to CVA, viral meningitis, hypertensive urgency, anxiety, right arm palsy due to compression -CT of the head and CTA of the head/neck were negative to acute findings, ECG WNL, labs WNL, no new rashes or lesions on skin exam, no focal neuro defects at this time, has been afebrile, no leukocytosis or significant neck stiffness -Will obtain MRI of the brain WO con and TTE for further evaluation, am fasting lipid panel and A1C -Fall precautions, neuro checks, ROM exercises, PT/OT -BL SCD's for DVT PPX to start, will wait to order chemical PPX until the MRI results -AM CBC, BMP (2) HTN (hypertension): -Has been hypertensive with systolics in the 170's-180's since arrival -BP typically stable without antihypertensives per the patient -Likely due to her anxiety but will not treat until we get the results of her MRI or she is significantly HTN/symptomatic -Continue to monitor on tele (3) Confusion: -See stroke-like symptoms (4) Shingles: -Completed a 7 day course of Valtrex 3 weeks ago for LUE shingles -Her rash is almost completely healed, no other signs of recurrence on skin inspection -Continue to monitor (5) Hyperlipidemia: -Not currently on a statin, will wait for MRI and lipid panel for now (6) Anxiety: -Poorly controlled -Currently only on prn ativan for anxiety/sleep and uses consistently -If the rest of her workup is negative would consider starting an antidepressant prior to discharge (7) Acid reflux: -Daily famotidine while admitted for stress ulcer PPX Plan The patient was discussed with Dr. Castaneda at the time of the admission Discharge Plan Discharge Items Patient Disposition: Home - Self-Care Reason For Visit: STROKE-LIKE SYMPTOMS Discharge Diagnosis: as above Activity: Resume your previous activity Non-emergency contact: Primary Care Provider Call non-emergency contact if: you have any medication questions Follow-up/Referrals: Alison Mathias DO [Primary Care Provider] - Diet: Heart Healthy Addtl Attending Provider Instructions: Recommendations: 1. 81 mg aspirin tablet daily. 2. If a blood pressure medication is needed, my choice would be verapamil ( 120 mg ER once daily ) as this is my drug of choice to prevent vasospasm /migraines. will defer for now as starting gabapentin. If blood pressure remains elevated at your next visit, then will defer to your primary care provider. 3. WIll start gabapentin for post herpetic neuralgia pain, slowly increase, day 1: 1 tablet once in the evening, day 2: 2 tablets in the evening, day 3: max dose 3 tablets in the evening. When you have pain relief, you can taper off this medicine. Usually course of shingles last 2-6 weeks. I will prescribe a 2 week course. 4. Please followup with your PCP in 1-2 weeks. Pending Studies at Discharge: No Stand-Alone Forms: [facility] Medications and DC Order Prescriptions: New gabapentin 300 mg tablet extended release 24 hr 900 mg PO PM Qty: 40 0RF Rx Instructions: Day 1: only take one tab at bedtime Day 2: take two tabs at bedtime Day 3: take 3 tabs at bedtime May cause sedation. will need to taper off aspirin 81 mg tablet,delayed release (DR/EC) 81 mg PO DAILY Qty: 30 0RF Continued mometasone 50 mcg/actuation spray,non-aerosol 1 - 2 spray intranasal DAILY Qty: 17 5RF lorazepam [Ativan] 0.5 mg tablet 0.5 mg PO HS Qty: 30 3RF multivitamin Tablet 1 tab PO DAILY meclizine 25 mg tablet 25 mg PO TID PRN (Reason: dizziness) Qty: 20 1RF cholecalciferol (vitamin D3) 2,000 unit capsule 2,000 units PO HS Discharge Orders: Discharge Order (Routine); Ordered 03/18/23 Ordered By: Ezekiel Reddy Admission Data Admit Date/Time: 03/17/23 13:38 Attending Provider: Ezekiel Reddy Admit Provider: Bharat Castaneda Primary Care Provider: Alison Mathias Other Providers: Bharat Castaneda ; Yared Cardenas ; Morteza Stephens ; Suzanna Jarrett ; Yin Schuster ; Candy Monterroso ; Seb Gaona Kathleen ; Jono Lara ; Dominic Vincent ; Lillie Cain ; Lissette Gage ; Seb Jimenez ; Husam Esteban Other Interventions: Discharge Summary Assessment (RN) Last Done: 03/18/23 14:26 Coding Diagnoses Stroke-like symptoms R29.90 HTN (hypertension) I10 Confusion R41.0 Shingles B02.9 Hyperlipidemia E78.5 Anxiety F41.9 Acid reflux K21.9
== END 2023-03-18 14:39 | disposition home or self-care (01) ==
LOC: 2N 11:08 → ED 11:08 → SUATTDRO 13:38 → 2N 17:00

== ENCOUNTER 2025-11-21 15:44 | Inpatient (IN) ==
--- NOTE | 2025-11-21 16:16 | Emergency Department Note ---
Impression & Plan Bilateral pulmonary embolism, Anxiety ED Provider Note NAME: GORDO KELLY AGE: 75 SEX: F : 1950 ARRIVES VIA: Ambulance INFORMANT: Patient, EMS, ED PROVIDER(S): Dylan Hernandez DO CHIEF COMPLAINT: ?dyspnea HPI: This is a 75-year-old female with the PMHx of HTN, GERD, paraesophageal hiatal hernia s/p fundoplication, anxiety, and RCC s/p nephrectomy presenting to [facility] for further evaluation of SOB. Patient is accompanied by EMS who provide additional history. EMS states they were called for shortness of breath but the patient does not have this complaint. Patient was having anxiety related to her CT reads. She had a CT AP for her renal cyst and monitoring. She was reading her results and had an anxiety reaction. Her PCP called her and told to report to the ED for further evaluation. They deny fever or chills. No cough or congestion. Denies chest pain or palpitations. No shortness of breath. They deny abdominal pain, nausea and vomiting. No urinary complaints. No recent changes in bowel movements. Patient denies recent changes in medications or OTC supplements. Patient offers no other complaints, today. ADDITIONAL HISTORY OBTAINED: Per HPI Chronic Medical/Social Conditions Affecting Care: Per HPI PAST MEDICAL HISTORY: See Below PAST SURGICAL HISTORY: See Below FAMILY HISTORY: See Below SOCIAL HISTORY: See Below HOME MEDICATIONS: See Below ALLERGIES: See Below VITALS: See Below PHYSICAL EXAMINATION: GENERAL: Sitting up in bed, alert, well appearing, well nourished, no distress, non-toxic EYE EXAM: normal conjunctiva. OROPHARYNX: no exudate, no erythema, lips, buccal mucosa, and tongue normal and mucous membranes are moist NECK: supple, no nuchal rigidity, no adenopathy, non-tender LUNGS: Clear to auscultation. Normal chest wall mechanics HEART: no murmurs, regular rate, regular rhythm ABDOMEN: abdomen soft, non-tender, no masses, no rebound or guarding. BACK: Back is symmetrical on inspection and there is no deformity, no midline tenderness, no CVA tenderness. SKIN: no rashes and no bruising UPPER EXTREMITIES: upper extremities are grossly normal. LOWER EXTREMITIES: No pitting edema. NEURO EXAM: Normal sensorium, GCS 15, normal speech, no gross weakness of arms, no gross weakness of legs. Anxious, tearful. MEDICAL DECISION MAKING: Differential diagnoses includes but not limited to ACS, unstable angina, dysrhythmia, PNA, hypervolemia/pulmonary edema, CHF exacerbation, COPD exacerbation, PE, pneumothorax, pericardial effusion, cardiac tamponade, anxiety/psychogenic, viral URI In summary, this is a 75 year old female who presented with abnormal outpatient imaging. Differential as above. Nursing notes and pertinent past medical records reviewed. Vital signs reviewed and the patient is hypertensive but otherwise afebrile and HDS. History and presentation revealed known history of RCC s/p partial nephrectomy. She has a screening CTAP for evaluation of known renal cyst. This has enlarged recently. She is aware of her CT findings. Her findings caused significant anxiety. Her PCP recommended ED evaluation for confirmation. Physical examination revealed as above. As a result of my initial evaluation, IV access was established and the patient was placed on CCRM. Therapeutics ordered include PO ativan due to severe anxiety. We will plan for CT PE to confirm pulmonary emboli. Diagnostics interpreted by me include EKG and cardiac monitoring as listed below: -Cardiac Monitoring: An order was placed for continuous cardiac monitoring. The monitor shows a rate of 70-80s with regular rhythm. -ECG: Normal sinus rhythm at a ventricular rate of [address] segment changes to suggest STEMI. Intervals within normal limits. Patient completed laboratory studies and imaging. Results independently interpreted by me are no leukocytosis or anemia. There is no significant electrolyte derangements or significant kidney dysfunction from baseline. No changes in LFTs. Normal troponin. Normal BNP. The patient was managed with IV heparin bolus and infusion for bilateral segmental and subsegmental pulmonary emboli. Prescription sent for Apixaban. This will cost around $150 per month. They are comfortable with this cost but she is very anxious regarding her diagnosis. Unclear source of her emboli. No evidence of R heart strain. I feel she would benefit from TTE and further evaluation as an inpatient. PESI is intermediate/moderate risk of mortality. For these reasons, will discuss with the hospitalist for admission. Discussed with [facility] Hospitalist group who accepted for admission. Consults/Care Managements Discussions: Per [facility] ER treatment provided: See above Procedures: None Critical Care: I have personally spent 30 minutes of critical care time in direct management of this patient. This includes bedside care, interpretation of diagnostic studies, and testing, discussion with consultants, patient, and family members, and other require inpatient management activities. This 30 minutes is in excess of all separately billable procedures. The chart was completed utilizing [employer] Speech voice recognition software. Grammatical errors, random word insertions, pronoun errors, and incomplete sentences are an occasional consequence of this system due to software limitations, ambient noise, and hardware issues. Any formal questions or concerns about the content, text, or information contained within the body of this dictation should be directly addressed to the physician for clarification. Past Med/Surg History Problem List (Updated 11/21/25 @ 17:23 by Dylan Hernandez DO) Anxiety (Acute) Bilateral pulmonary embolism (Acute) Postherpetic neuralgia Vitamin B12 deficiency History of incisional hernia repair (05/18/23) Laparoscopic Repair of Recurrent Incisional Hernia with Mesh(Not Applicable) - Marcellus Tovar DO Vertigo Incisional hernia HTN (hypertension) Chronic cerebral ischemia follows with [place] neurology; stroke-like symptoms 03/18/23 suspected to be migraine variant-imaging negative for stroke Complicated migraine Recurrent incisional hernia Vitamin D deficiency Renal cyst left Prediabetes Hyperlipidemia Allergic rhinitis Anxiety Acid reflux Arthritis Diverticulosis of colon History of kidney cancer (2001) 2002 - s/p partial nephrectomy History of TMJ syndrome mild limited ROM Irritable bowel syndrome Medical History Migraine History of motion sickness Hypertension History of shingles History of congenital heart disease History of aspiration pneumonia Vertigo Surgical History History of colonoscopy History of incisional hernia repair (11/01/19) History of cardiac cath Nausea and vomiting after administration of anesthetic agent History of anesthesia reaction History of laparoscopy S/P ERCP (05/18/19) S/P cholecystectomy (05/20/19) History of oophorectomy, unilateral History of hernia repair History of fundoplication H/O partial nephrectomy (2001) Family History Mother Colon cancer Thyroid disease Colorectal cancer Father Pneumonia Brother Cancer Denies family history of Ovarian cancer Prostate cancer Myocardial infarction Breast cancer Lung cancer Social History Smoking Status: Never smoker Second Hand Exposure: Yes ( A CHILD); Do You Dip or Chew Tobacco: No; Hx Alcohol Use: No Hx Substance Use: No Preferred Language: Hungarian Communication Ability: Effective Visual Impairment: No Limitations Hearing Ability: Normal Orthotic Aide Required: No Beliefs That Will Affect Care: None marital status: Current Living Situation: Spouse current occupational status: retired current occupation: TEACHER How many Children do You have: 0 Feels Safe at Home: Yes Childhood Exposure to Second-Hand Smoke: Yes Diet: regular Diet Comment: regular caffeine: Yes (1 or 2 cups of tea a day) during the past year weight has: remained stable Dental Care, Regularly: Yes Physical Activity Frequency: 1-2 Times per Week Seatbelt Use: always Sunscreen Use: Yes Assistive Devices: Glasses Allergies Allergies Allergy/AdvReac Type Severity Reaction Status Date / Time adhesive Allergy Severe WELTS Verified 11/11/25 15:11 metoclopramide [From Reglan] Allergy Severe Anaphylaxis Verified 11/11/25 15:11 morphine Allergy Severe "bugs Verified 11/11/25 15:11 crawling all over" Penicillins Allergy Severe Rash Verified 11/11/25 15:11 Sulfa (Sulfonamide Allergy Severe Rash Verified 11/11/25 15:11 Antibiotics) verapamil Allergy Severe Rash Verified 11/11/25 15:11 diclofenac [From Voltaren] Allergy Intermediate Rash Verified 11/11/25 15:11 acetaminophen [From Percocet] Allergy Unknown itchy Verified 11/11/25 15:11 oxycodone [From Percocet] Allergy Unknown itchy Verified 11/11/25 15:11 rivaroxaban [From Xarelto] AdvReac Unknown Nose Bleed Verified 11/11/25 15:11 Home Meds Home Medications Medication Instructions Recorded Confirmed cholecalciferol (vitamin D3) 50 50 mcg PO QDL 09/21/23 11/21/25 mcg (2,000 unit) capsule mecobalamin (vitamin B12) 1,000 1,000 mcg sublingual QAM 09/21/23 11/21/25 mcg disintegrating tablet,sublingual famotidine 40 mg tablet 40 mg PO QAM 02/10/25 11/21/25 magnesium glycinate 200 mg PO QPM 04/03/25 11/21/25 lotilaner 0.25 % eye drops (Xdemvy) 1 drp OPB BID 11/21/25 11/21/25 Previous Rx's Medication Instructions Recorded caffeine 200 mg tablet 200 mg PO BID PRN headache #60 03/07/25 tabs candesartan 4 mg tablet 4 mg PO QPM #90 tabs 06/16/25 lorazepam 0.5 mg tablet (Ativan) 0.5 mg PO HS #30 tabs 08/05/25 mometasone 50 mcg/actuation nasal 1 - 2 spray intranasal QAM #17 10/03/25 spray grams apixaban 5 mg tablet 5 mg PO BID #60 tabs 11/21/25 Results & Data (ED) Vital Signs Vital Signs - 24 hr 11/21/25 15:45 11/21/25 15:45 11/21/25 15:45 Temperature 36.5 C Temperature Source Oral Pulse Rate 82 Pulse Rate [Apical] 82 Respiratory Rate 16 16 Respiratory Effort / Characteristics Non-Labored Spontaneous Blood Pressure 176/107 H Blood Pressure [Right Arm] 176/107 H Blood Pressure Mean 130 Blood Pressure Mean [Right Arm] 130 Pulse Oximetry 98 98 98 Oxygen Delivery Method Room Air Room Air Room Air Sepsis Recent Fever Within 48 Hours No Sepsis New/Unexplained Change in Mental Status No Sepsis Action Taken by Nursing No Action Required 11/21/25 16:04 Temperature Temperature Source Pulse Rate 77 Pulse Rate [Apical] Respiratory Rate Respiratory Effort / Characteristics Blood Pressure Blood Pressure [Right Arm] Blood Pressure Mean Blood Pressure Mean [Right Arm] Pulse Oximetry Oxygen Delivery Method Sepsis Recent Fever Within 48 Hours Sepsis New/Unexplained Change in Mental Status Sepsis Action Taken by Nursing Laboratory Data 11/21/25 16:16 11/21/25 16:16 Lab Results 11/21/25 11/21/25 Range/Units 16:16 16:20 WBC 6.01 (4.8-10.8) K/ul RBC 5.17 (4.20-5.40) M/uL Hgb 15.9 (12.0-16.0) g/dL POC Hgb 16.3 H (12.0-16.0) g/dl Hct 47.3 H (37.0-47.0) % POC Hct 48 H (37-47) % MCV 91.5 (80.0-100.0) fL MCH 30.8 (25.0-34.0) pg MCHC 33.6 (32.0-36.0) g/dL RDW Std Deviation 43.0 (36.4-46.3) fL RDW Coeff of Abdifatah 12.7 (11.5-14.5) % Plt Count 226 (130-400) K/uL MPV 9.0 L (9.4-12.4) fL Immature Gran % (Auto) 0.2 % Neut % (Auto) 64.3 % Lymph % (Auto) 24.5 % [place] % (Auto) 9.0 % Eos % (Auto) 1.7 % Baso % (Auto) 0.3 % Neut # (Auto) 3.87 (1.40-6.50) K/uL Lymph # (Auto) 1.47 (1.20-3.40) K/uL [place] # (Auto) 0.54 (0.11-0.59) K/uL Eos # (Auto) 0.10 (0.00-0.50) K/uL Baso # (Auto) 0.02 (0.00-0.20) K/uL Immature Gran # (Auto) 0.01 (0.01-0.20) K/uL POC Sodium 138 (135-144) mmol/L Sodium 137 (136-145) mmol/L POC Potassium 4.8 (3.3-5.0) mmol/L Potassium TNP POC Chloride 101 (101-112) mmol/L Chloride 101 (98-107) mmol/L Carbon Dioxide 28 (21-32) mmol/L POC Total CO2 27 (24-31) mmol/L Anion Gap 8 (3-11) POC Anion Gap 16.0 (16-25) mmol/L POC BUN 16 (7-18) mg/dl BUN 14 (6-23) mg/dl Creatinine 0.88 (0.6-1.2) mg/dl POC Creatinine 0.9 (0.6-1.3) mg/dl Est Cr Clr Drug Dosing 49.3 ml/min eGFR 68.92 BUN/Creatinine Ratio 15.9 (10-20) Glucose 123 H (70-99(Fasting)) mg/dl POC Glucose (other) 120 H (70-99) mg/dl Calcium 10.0 (8.6-10.3) mg/dl POC Ioniz Calcium Whit 1.14 (1.12-1.32) mmol/l Total Bilirubin 0.4 (0.2-1.0) mg/dl AST TNP ALT 19 (7-52) U/L Alkaline Phosphatase 94 (34-104) U/L Troponin I High Sens 5.3 (0-14) pg/ml B-Natriuretic Peptide 67 (0-100) pg/ml Total Protein 7.7 (6.0-8.3) gm/dl Albumin 4.6 (3.4-5.0) gm/dl Globulin 3.1 (2.5-4.0) gm/dl Albumin/Globulin Ratio 1.5 (0.9-2) Administered Medications Discontinued Medications Ioversol (Optiray 320 125ml) 118 ml IV ONCE ONE Stop: 11/21/25 16:35 Last Admin: 11/21/25 16:34 Dose: 118 ml Documented By: DILMA Lorazepam (Lorazepam 0.5 Mg Tab) 0.5 mg PO NOW STA Stop: 11/21/25 15:55 Last Admin: 11/21/25 16:24 Dose: 0.5 mg Documented By: RAJIV Discharge Plan Visit Data Chief Complaint: Shortness of Breath/Dyspnea Stated Complaint: SOB, Reffered by doc ED Provider: Dylan Hernandez Discharge Problem: Bilateral pulmonary embolism, Anxiety Patient Disposition: Admitted As Inpatient Condition: Serious Forms Stand Alone Forms: My [facility] Prescriptions Prescriptions: New apixaban 5 mg tablet 5 mg PO BID Qty: 60 0RF Rx Instructions: not started...just ordered No Action candesartan 4 mg tablet 4 mg PO QPM Qty: 90 1RF lorazepam [Ativan] 0.5 mg tablet 0.5 mg PO HS Qty: 30 3RF mecobalamin (vitamin B12) 1,000 mcg tablet,disintegrating 1,000 mcg sublingual QAM Rx Instructions: place tablet under tongue and allow to dissolve for at least30 secs before swallowing cholecalciferol (vitamin D3) 50 mcg (2,000 unit) capsule 50 mcg PO QDL magnesium glycinate 100 mg magnesium capsule 200 mg PO QPM mometasone 50 mcg/actuation spray,non-aerosol 1 - 2 spray intranasal QAM Qty: 17 5RF caffeine 200 mg tablet 200 mg PO BID PRN (Reason: headache ) Qty: 60 1RF famotidine 40 mg tablet 40 mg PO QAM Xdemvy 0.25 % drops 1 drp OPB BID Referrals Referrals: Alison Mathias DO [Primary Care Provider] -
[2025-11-21] MEDS: LORazepam 0.5 MG TAB PO STA (16:24)
[2025-11-21 16:29] LABS: Hematocrit (blood only) 47.3 % (37.0-47.0); Hemoglobin 15.9 g/dL (12.0-16.0); Immature Granulocytes # (auto) 0.01 K/uL (0.01-0.20); Immature Granulocytes % (auto) 0.2 %; Mean Corpuscular Hemoglobin 30.8 pg (25.0-34.0); Mean Corpuscular Volume 91.5 fL (80.0-100.0); Platelet Count 226 K/uL (130-400); RDW Standard Deviation 43.0 fL (36.4-46.3); Red Blood Count 5.17 M/uL (4.20-5.40); White Blood Count 6.01 K/ul (4.8-10.8)
[2025-11-21] MEDS: OPTIRAY 320 125ml IV ONE (16:34)
--- NOTE | 2025-11-21 16:51 | Electrocardiogram Report ---
Test Reason : Blood Pressure : */* mmHG Vent. Rate : 79 BPM Atrial Rate : 79 BPM P-R Int : 162 ms QRS Dur : 82 ms QT Int : 360 ms P-R-T Axes : 25 17 18 degrees QTcB Int : 412 ms Normal sinus rhythm Normal ECG When compared with ECG of 20-Mar-2023 08:29, No significant change was found Confirmed by Davi Eastman ([id number]) on 11/21/2025 4:51:06 PM Referred By: Confirmed By: Davi Eastman
[2025-11-21 17:00] LABS: Alanine Aminotransferase 19 U/L (7-52); Albumin Globulin Ratio 1.5 (0.9-2); Albumin Level 4.6 gm/dl (3.4-5.0); Alkaline Phosphatase 94 U/L (34-104); Anion Gap 8 (3-11); Bilirubin,Total 0.4 mg/dl (0.2-1.0); Blood Urea Nitrogen 14 mg/dl (6-23); Calcium 10.0 mg/dl (8.6-10.3); Carbon Dioxide 28 mmol/L (21-32); Chloride 101 mmol/L (98-107); Creatinine Clr Calc Pharmacy 49.3 ml/min; Globulin 3.1 gm/dl (2.5-4.0); Glucose 123 mg/dl (70-99(Fasting)); Sodium 137 mmol/L (136-145); Total Protein 7.7 gm/dl (6.0-8.3)
[2025-11-21] MEDS ORDERED: HEPARIN SOD (PORCINE) 1000 UNIT/ML IV ONE (17:05)
[2025-11-21] MEDS: HEPARIN SOD (PORCINE) 1000 UNIT/ML IV ONE (17:36)
[2025-11-21 17:37] LABS: INR 0.9 (0.9-1.1); Partial Thromboplastin Time 24 Seconds (21-31); Prothrombin Time 9.8 Seconds (9.0-12.0)
[2025-11-21] MEDS: HEPARIN 25000 UNIT/500 ML D5W 25,000 UNITS/500 ML BAG IV SCH (17:37)
--- NOTE | 2025-11-21 17:39 | CT Scan Report ---
INDICATION: Pulmonary embolism COMPARISON: None TECHNIQUE: CT images of the chest were obtained. 3D CT angiogram was generated from the axial data set. Dose reduction according to patient size and/or automated exposure control techniques have been utilized for this exam. MIP (Maximum Intensity Pixel) images were utilized. FINDINGS: AXIAL IMAGES: LUNGS: No focal consolidations. No worrisome pulmonary nodules. Minor bibasilar atelectasis or scarring. Hyperinflated lungs. No pneumothorax. PLEURA: There is no pleural effusion. MEDIASTINUM/JAVIER: Mediastinal lymph nodes measure less than 1 cm in short axis. No pathologically enlarged lymph nodes are appreciated. CARDIAC: The heart is normal in size. Moderate coronary artery calcifications. AORTA: No aneurysm. Tortuous descending aorta. LIMITED ABDOMEN: Normal size adrenal glands. Cholecystectomy clips. BONES: Scoliotic and degenerative changes of the spine. OTHER: Moderate hiatal hernia. CTA: Bilateral pulmonary emboli noted. Predominant involvement in the right lower lobe pulmonary arteries and left lower lobe pulmonary arteries. Smaller involvement left upper lobe pulmonary artery. No saddle embolus. IMPRESSION: Bilateral pulmonary emboliInvolving predominantly the lower lobe pulmonary arterial branches. Mild burden. No focal consolidations. Electronically signed by Jarocho Bal 11-21-2025 5:38 PM
[2025-11-21] MEDS: Heparin IV Adult Wt-Based Standard w/ INITIAL Bolus Protocol IV STA (17:42)
[2025-11-21 18:03] LABS: Potassium 4.3 mmol/L (3.5-5.1)
--- NOTE | 2025-11-21 18:26 | History & Physical Report ---
Date of Service November 21, 2025 Assessment & Plan (1) Bilateral pulmonary embolism: (2) Anxiety: Plan 75-year-old female with a past medical history of renal cell carcinoma in remission, hypertension, IBS, hyperlipidemia, anxiety, renal cysts presents to the hospital for bilateral pulmonary embolism: #Bilateral pulmonary embolism - admit to [facility] with telemetry monitoring -Will check lower extremity venous Dopplers to evaluate for thromboembolism -Patient was placed on a heparin drip by emergency room clinician, likely can transition over to NOAC in the a.m. -Consider hypercoagulable workup -Likely can follow-up with her own neck skewer/oncologist in relation to hype rcoagulable workup #Hypertension -Continue home medications #Anxiety -Continue home lorazepam as needed History of Present Illness Chief Complaint: Abnormal CT findings Primary Care Provider: Alison Mathias DO 75-year-old female with a past medical history as mentioned below presents to the hospital from home. She mentions that she went for a follow-up CT scan as ordered by her oncologist. Her clinician thereafter called her and told her to report to the emergency department due to abnormal CT findings. She was found to have likely pulmonary embolism per CT imaging done on an outpatient basis earlier today. She denies having any chest pain. She has had no dyspnea. No fevers or chills. She has had a history of superficial thrombophlebitis, in the form of thrombosed varicose veins in the past. She denies significant leg sw elling. She has mild edema of her left lower extremity. She has had some increased hip discomfort and for this reason has been somewhat sedentary but does engage in normal activities of daily living. She is up-to-date in regards to her cancer screening, and today was undergoing imaging in relation to a left sided renal cyst. She is to follow-up with nephrology in relation to this cyst. She denies any family history of thromboembolism, no history of miscarriages. Allergies Allergy/AdvReac Type Severity Reaction Status Date / Time adhesive Allergy Severe WELTS Verified 11/11/25 15:11 metoclopramide [From Reglan] Allergy Severe Anaphylaxis Verified 11/11/25 15:11 morphine Allergy Severe "bugs Verified 11/11/25 15:11 crawling all over" Penicillins Allergy Severe Rash Verified 11/11/25 15:11 Sulfa (Sulfonamide Allergy Severe Rash Verified 11/11/25 15:11 Antibiotics) verapamil Allergy Severe Rash Verified 11/11/25 15:11 diclofenac [From Voltaren] Allergy Intermediate Rash Verified 11/11/25 15:11 acetaminophen [From Percocet] Allergy Unknown itchy Verified 11/11/25 15:11 oxycodone [From Percocet] Allergy Unknown itchy Verified 11/11/25 15:11 rivaroxaban [From Xarelto] AdvReac Unknown Nose Bleed Verified 11/11/25 15:11 Home Medications Medication Instructions Recorded Confirmed Type cholecalciferol (vitamin D3) 50 50 mcg PO QDL 09/21/23 11/21/25 History mcg (2,000 unit) capsule mecobalamin (vitamin B12) 1,000 1,000 mcg sublingual QAM 09/21/23 11/21/25 History mcg disintegrating tablet,sublingual famotidine 40 mg tablet 40 mg PO QAM 02/10/25 11/21/25 History caffeine 200 mg tablet 200 mg PO BID PRN headache #60 03/07/25 11/21/25 Rx tabs magnesium glycinate 200 mg PO QPM 04/03/25 11/21/25 History candesartan 4 mg tablet 4 mg PO QPM #90 tabs 06/16/25 11/21/25 Rx lorazepam 0.5 mg tablet (Ativan) 0.5 mg PO HS #30 tabs 08/05/25 11/21/25 Rx mometasone 50 mcg/actuation nasal 1 - 2 spray intranasal QAM #17 10/03/25 11/21/25 Rx spray grams apixaban 5 mg tablet 5 mg PO BID #60 tabs 11/21/25 11/21/25 Rx lotilaner 0.25 % eye drops (Xdemvy) 1 drp OPB BID 11/21/25 11/21/25 History Past Med/Surg History Problem List (Updated 11/21/25 @ 17:23 by Dylan Hernandez DO) Anxiety (Acute) Bilateral pulmonary embolism (Acute) Postherpetic neuralgia Vitamin B12 deficiency History of incisional hernia repair (05/18/23) Laparoscopic Repair of Recurrent Incisional Hernia with Mesh(Not Applicable) - Marcellus Tovar DO Vertigo Incisional hernia HTN (hypertension) Chronic cerebral ischemia follows with [facility]; stroke-like symptoms 03/18/23 suspected to be migraine variant-imaging negative for stroke Complicated migraine Recurrent incisional hernia Vitamin D deficiency Renal cyst left Prediabetes Hyperlipidemia Allergic rhinitis Anxiety Acid reflux Arthritis Diverticulosis of colon History of kidney cancer (2001) 2001 - s/p partial nephrectomy History of TMJ syndrome mild limited ROM Irritable bowel syndrome Medical History Migraine History of motion sickness Hypertension History of shingles History of congenital heart disease History of aspiration pneumonia Vertigo Surgical History History of colonoscopy History of incisional hernia repair (11/01/19) History of cardiac cath Nausea and vomiting after administration of anesthetic agent History of anesthesia reaction History of laparoscopy S/P ERCP (05/18/19) S/P cholecystectomy (05/20/19) History of oophorectomy, unilateral History of hernia repair History of fundoplication H/O partial nephrectomy (2001) Family History Mother Colon cancer Thyroid disease Colorectal cancer Father Pneumonia Brother Cancer Denies family history of Ovarian cancer Prostate cancer Myocardial infarction Breast cancer Lung cancer Social History Smoking Status: Never smoker Second Hand Exposure: Yes ( A CHILD); Do You Dip or Chew Tobacco: No; Hx Alcohol Use: No Hx Substance Use: No Preferred Language: [place] Communication Ability: Effective Visual Impairment: No Limitations Hearing Ability: Normal Vice President Of Communications Required: No Beliefs That Will Affect Care: None marital status: Current Living Situation: Spouse current occupational status: retired current occupation: TEACHER How many Children do You have: 0 Feels Safe at Home: Yes Childhood Exposure to Second-Hand Smoke: Yes Diet: regular Diet Comment: regular caffeine: Yes (1 or 2 cups of tea a day) during the past year weight has: remained stable Dental Care, Regularly: Yes Physical Activity Frequency: 1-2 Times per Week Seatbelt Use: always Sunscreen Use: Yes Assistive Devices: Glasses Physical Exam Physical Exam: Gen-pt in NAD, awake and alert CVS-+s1,s2, RRR, no murmurs Lungs-CTA b/l Ext-mild edema ankles b/l, no cyanosis Neuro-grossly intact Results & Data Results & Data Vital Signs (Past 12 Hours) Vital Signs Temp Pulse Pulse Resp BP BP Pulse Ox 11/21/25 17:29 75 16 147/90 H 98 11/21/25 16:04 77 11/21/25 15:45 82 16 176/107 H 98 11/21/25 15:45 98 11/21/25 15:45 36.5 C 82 16 176/107 H 98 O2 Del Method 11/21/25 17:29 Room Air 11/21/25 16:04 11/21/25 15:45 Room Air 11/21/25 15:45 Room Air 11/21/25 15:45 Room Air Laboratory Results 11/21/25 11/21/25 11/21/25 Unknown 16:20 16:16 WBC 6.01 RBC 5.17 Hgb 15.9 POC Hgb 16.3 H Hct 47.3 H POC Hct 48 H MCV 91.5 MCH 30.8 MCHC 33.6 RDW Std Deviation 43.0 RDW Coeff of Abdifatah 12.7 Plt Count 226 MPV 9.0 L Immature Gran % (Auto) 0.2 Neut % (Auto) 64.3 Lymph % (Auto) 24.5 Bonner % (Auto) 9.0 Eos % (Auto) 1.7 Baso % (Auto) 0.3 Neut # (Auto) 3.87 Lymph # (Auto) 1.47 Bonner # (Auto) 0.54 Eos # (Auto) 0.10 Baso # (Auto) 0.02 Immature Gran # (Auto) 0.01 PT 9.8 INR 0.9 APTT 24 PTT Ratio 0.9 POC Sodium 138 Sodium 137 POC Potassium 4.8 Potassium 4.3 TNP POC Chloride 101 Chloride 101 Carbon Dioxide 28 POC Total CO2 27 Anion Gap 8 POC Anion Gap 16.0 POC BUN 16 BUN 14 Creatinine 0.88 POC Creatinine 0.9 Est Cr Clr Drug Dosing 49.3 eGFR 68.92 BUN/Creatinine Ratio 15.9 Glucose 123 H POC Glucose (other) 120 H Calcium 10.0 POC Ioniz Calcium Whit 1.14 Total Bilirubin 0.4 AST 17 TNP ALT 19 Alkaline Phosphatase 94 Troponin I High Sens 5.3 B-Natriuretic Peptide 67 Total Protein 7.7 Albumin 4.6 Globulin 3.1 Albumin/Globulin Ratio 1.5 Diagnostic Findings Chest CTA 11/21/25 15:48 INDICATION: Pulmonary embolism COMPARISON: None TECHNIQUE: CT images of the chest were obtained. 3D CT angiogram was generated from the axial data set. Dose reduction according to patient size and/or automated exposure control techniques have been utilized for this exam. MIP (Maximum Intensity Pixel) images were utilized. FINDINGS: AXIAL IMAGES: LUNGS: No focal consolidations. No worrisome pulmonary nodules. Minor bibasilar atelectasis or scarring. Hyperinflated lungs. No pneumothorax. PLEURA: There is no pleural effusion. MEDIASTINUM/JAVIER: Mediastinal lymph nodes measure less than 1 cm in short axis. No pathologically enlarged lymph nodes are appreciated. CARDIAC: The heart is normal in size. Moderate coronary artery calcifications. AORTA: No aneurysm. Tortuous descending aorta. LIMITED ABDOMEN: Normal size adrenal glands. Cholecystectomy clips. BONES: Scoliotic and degenerative changes of the spine. OTHER: Moderate hiatal hernia. CTA: Bilateral pulmonary emboli noted. Predominant involvement in the right lower lobe pulmonary arteries and left lower lobe pulmonary arteries. Smaller involvement left upper lobe pulmonary artery. No saddle embolus. IMPRESSION: Bilateral pulmonary emboliInvolving predominantly the lower lobe pulmonary arterial branches. Mild burden. No focal consolidations. Electronically signed by Jarocho Bal 11-21-2025 5:38 PM ECG Additional Comments: EKG read indicates normal sinus rhythm Code Status & VTE Plan VTE Prophylaxis Plan VTE Prophylaxis will be ordered: Yes PG Care Time/CCT Total # of Minutes Spent Total Time Spent with Patient: Total time spent is greater than 50% in coordination of care (as documented) at patient's floor/unit and/or counseling patient: Coding Level of Care Code 01133 INT INP/OBS CARE 3/75MIN Diagnoses Bilateral pulmonary embolism I26.99 Anxiety F41.9
[2025-11-21] MEDS ORDERED: POLYETHYLENE (MIRALAX) 17 GM PACK PO PRN (20:27)
[2025-11-21] MEDS ORDERED: MELATONIN 3 MG TAB PO PRN (20:27)
[2025-11-21] MEDS ORDERED: ALUMINUM/MAGNESIUM SUSP 30 ML UDC PO PRN (20:27)
[2025-11-21] MEDS ORDERED: MAGNESIUM HYDROXIDE SUSP 30 ML UDC PO PRN (20:27)
--- NOTE | 2025-11-21 20:35 | Ultrasound Report ---
Exam(s): US VENOUS BILATERAL LOWER EXTREMITIES EXAM: US Duplex Bilateral Lower Extremities Veins CLINICAL HISTORY: Reason for exam: edema, hx of p.e.. OTHER: Other Notes: Indication: TECHNIQUE: Real-time duplex ultrasound scan of the bilateral lower extremity veins integrating B-mode two-dimensional vascular structure, Doppler spectral analysis, color flow Doppler imaging and compression. COMPARISON: No relevant prior studies available. FINDINGS: Right deep veins: Nonocclusive DVT distal femoral vein. No DVT visualized in the common femoral, proximal or mid femoral, proximal deep femoral, or popliteal veins, which demonstrate normal color flow, are normally compressible, with normal phasic flow and/or augmentation response. Right superficial veins: No thrombus in the visualized right great saphenous vein. Superficial thrombophlebitis in a branch vessel communicating with the distal femoral vein. Left deep veins: No DVT in the left common femoral, femoral, proximal deep femoral or popliteal veins. The veins demonstrate normal color flow, are normally compressible, with normal phasic flow and/or augmentation response. Left superficial veins: No thrombus in the visualized left great saphenous vein. Soft tissues: No acute findings. IMPRESSION: 1. Acute nonocclusive DVT distal right femoral vein. Superficial thrombophlebitis of a branch vessel communicating with this vein. 2. No left lower extremity DVT. Communications: Verify Receipt Electronically signed by: Michelle Acevedo M.D. 11/21/25 20:34 PM
[2025-11-21] MEDS: LORazepam 0.5 MG TAB PO SCH (21:19)
[2025-11-21] MEDS: ACETAMINOPHEN 325 MG TAB PO PRN (21:19)
[2025-11-21] MEDS: MAGNESIUM OXIDE 400 MG TAB PO SCH (21:20)
[2025-11-21] MEDS: LOSARTAN POTASSIUM 25 MG TAB PO SCH (22:59)
[2025-11-22 00:21] LABS: ANTI-Xa, UFH(UnfractionatedHep 1.12 IU/ml (0.3-0.7)
[2025-11-22 01:29] LABS: ANTI-Xa, UFH(UnfractionatedHep 0.97 IU/ml (0.3-0.7)
[2025-11-22 02:28] LABS: ANTI-Xa, UFH(UnfractionatedHep 0.64 IU/ml (0.3-0.7)
[2025-11-22] MEDS: CYANOCOBALAMIN (B-12) 500 MCG TABLET PO SCH (08:35)
[2025-11-22] MEDS: FAMOTIDINE 40 MG TABLET PO SCH (08:35)
[2025-11-22] MEDS: FLUTICASONE PROPIONATE NA SPR 16 GM BTL SCH (08:40)
[2025-11-22 09:05] LABS: Hematocrit (blood only) 44.9 % (37.0-47.0); Hemoglobin 15.4 g/dL (12.0-16.0); Immature Granulocytes # (auto) 0.03 K/uL (0.01-0.20); Immature Granulocytes % (auto) 0.5 %; Mean Corpuscular Hemoglobin 31.4 pg (25.0-34.0); Mean Corpuscular Volume 91.6 fL (80.0-100.0); Platelet Count 212 K/uL (130-400); RDW Standard Deviation 43.1 fL (36.4-46.3); Red Blood Count 4.90 M/uL (4.20-5.40); White Blood Count 6.13 K/ul (4.8-10.8)
[2025-11-22 09:21] LABS: Alanine Aminotransferase 15.0 U/L (7-52); Albumin Globulin Ratio 1.5 (0.9-2); Albumin Level 4.1 gm/dl (3.4-5.0); Alkaline Phosphatase 81.0 U/L (34-104); Anion Gap 9.0 (3-11); Bilirubin,Total 0.7 mg/dl (0.2-1.0); Blood Urea Nitrogen 11.0 mg/dl (6-23); Calcium 9.5 mg/dl (8.6-10.3); Carbon Dioxide 27.0 mmol/L (21-32); Chloride 103.0 mmol/L (98-107); Creatinine Clr Calc Pharmacy 51.6 ml/min; Globulin 2.7 gm/dl (2.5-4.0); Glucose 106.0 mg/dl (70-99(Fasting)); Potassium 4.2 mmol/L (3.5-5.1); Sodium 139.0 mmol/L (136-145); Total Protein 6.8 gm/dl (6.0-8.3)
[2025-11-22 09:40] LABS: ANTI-Xa, UFH(UnfractionatedHep 0.34 IU/ml (0.3-0.7)
--- NOTE | 2025-11-22 11:38 | Hospitalist Progress Note ---
Date of Service November 22, 2025 Assessment & Plan (1) Bilateral pulmonary embolism: (2) Anxiety: Plan 75-year-old female with a past medical history of renal cell carcinoma in remission, hypertension, IBS, hyperlipidemia, anxiety, renal cysts presents to the hospital for bilateral pulmonary embolism: #Bilateral pulmonary embolism - cont with telemetry monitoring - Lower extremity Dopplers indicate acute right femoral DVT -Patient was placed on a heparin drip by emergency room clinician, and will transition over to apixaban today. -Likely can follow-up with her own license inspector/oncologist in relation to hypercoagulable workup - Echocardiogram currently pending. #Hypertension -Continue home medications #Anxiety -Continue home lorazepam as needed #Hiatal hernia -Patient underwent CT imaging which showed 2 cm focus of mucosal thickening versus nodularity along the anterior margin, recommendations were for endoscopy. - She will benefit from follow-up with gastroenterology with considerations of an upper EGD to evaluate this area. Admission and Anticipated Discharge Date Admission Date: November 21, 2025 Subjective Patient seen and examined. She denies having any trouble breathing. No nausea or vomiting. No fevers or chills. Physical Exam Physical Exam: Gen-pt in NAD, awake and alert CVS-+s1,s2, RRR, no murmurs Lungs-CTA b/l Ext-mild edema ankles b/l, no cyanosis Neuro-grossly intact Results & Data Results & Data Vital Signs (Past 12 Hours) Vital Signs Pulse Resp BP Pulse Ox O2 Del Method O2 Flow Rate 11/22/25 07:02 79 11/22/25 06:00 66 15 134/88 93 Room Air 11/22/25 05:06 98 Room Air, Nasal Cannula 2 11/22/25 05:00 76 18 120/82 94 Room Air 11/22/25 04:34 81 11/22/25 04:00 74 16 124/81 98 Nasal Cannula 2 11/22/25 03:11 86 L Room Air, Nasal Cannula 0 11/22/25 03:00 66 15 139/84 94 Nasal Cannula 2 11/22/25 02:00 132/89 11/22/25 02:00 67 15 132/89 93 Room Air 11/22/25 01:03 66 18 125/80 94 Room Air 11/22/25 00:00 130/70 11/22/25 00:00 72 22 130/70 92 Room Air Laboratory Results 11/22/25 11/22/25 11/22/25 08:51 01:46 00:48 WBC 6.13 RBC 4.90 Hgb 15.4 POC Hgb Hct 44.9 POC Hct MCV 91.6 MCH 31.4 MCHC 34.3 RDW Std Deviation 43.1 RDW Coeff of Abdifatah 12.8 Plt Count 212 MPV 9.1 L Immature Gran % (Auto) 0.5 Neut % (Auto) 57.3 Lymph % (Auto) 28.7 Yates % (Auto) 10.4 Eos % (Auto) 2.8 Baso % (Auto) 0.3 Neut # (Auto) 3.51 Lymph # (Auto) 1.76 Yates # (Auto) 0.64 H Eos # (Auto) 0.17 Baso # (Auto) 0.02 Immature Gran # (Auto) 0.03 PT INR APTT PTT Ratio Heparin Anti-Xa, Unfract 0.34 0.64 0.97 H* POC Sodium Sodium 139 POC Potassium Potassium 4.2 POC Chloride Chloride 103 Carbon Dioxide 27 POC Total CO2 Anion Gap 9 POC Anion Gap POC BUN BUN 11 Creatinine 0.85 POC Creatinine Est Cr Clr Drug Dosing 51.6 eGFR 71.85 BUN/Creatinine Ratio 12.9 Glucose 106 H POC Glucose (other) Calcium 9.5 POC Ioniz Calcium Whit Total Bilirubin 0.7 AST 17 ALT 15 Alkaline Phosphatase 81 Troponin I High Sens B-Natriuretic Peptide Total Protein 6.8 Albumin 4.1 Globulin 2.7 Albumin/Globulin Ratio 1.5 11/21/25 11/21/25 11/21/25 Unknown 23:25 16:20 WBC RBC Hgb POC Hgb 16.3 H Hct POC Hct 48 H MCV MCH MCHC RDW Std Deviation RDW Coeff of Abdifatah Plt Count MPV Immature Gran % (Auto) Neut % (Auto) Lymph % (Auto) Yates % (Auto) Eos % (Auto) Baso % (Auto) Neut # (Auto) Lymph # (Auto) Yates # (Auto) Eos # (Auto) Baso # (Auto) Immature Gran # (Auto) PT INR APTT PTT Ratio Heparin Anti-Xa, Unfract 1.12 H* POC Sodium 138 Sodium POC Potassium 4.8 Potassium 4.3 POC Chloride 101 Chloride Carbon Dioxide POC Total CO2 27 Anion Gap POC Anion Gap 16.0 POC BUN 16 BUN Creatinine POC Creatinine 0.9 Est Cr Clr Drug Dosing eGFR BUN/Creatinine Ratio Glucose POC Glucose (other) 120 H Calcium POC Ioniz Calcium Whit 1.14 Total Bilirubin AST 17 ALT Alkaline Phosphatase Troponin I High Sens B-Natriuretic Peptide Total Protein Albumin Globulin Albumin/Globulin Ratio 11/21/25 16:16 WBC 6.01 RBC 5.17 Hgb 15.9 POC Hgb Hct 47.3 H POC Hct MCV 91.5 MCH 30.8 MCHC 33.6 RDW Std Deviation 43.0 RDW Coeff of Abdifatah 12.7 Plt Count 226 MPV 9.0 L Immature Gran % (Auto) 0.2 Neut % (Auto) 64.3 Lymph % (Auto) 24.5 Yates % (Auto) 9.0 Eos % (Auto) 1.7 Baso % (Auto) 0.3 Neut # (Auto) 3.87 Lymph # (Auto) 1.47 Yates # (Auto) 0.54 Eos # (Auto) 0.10 Baso # (Auto) 0.02 Immature Gran # (Auto) 0.01 PT 9.8 INR 0.9 APTT 24 PTT Ratio 0.9 Heparin Anti-Xa, Unfract POC Sodium Sodium 137 POC Potassium Potassium TNP POC Chloride Chloride 101 Carbon Dioxide 28 POC Total CO2 Anion Gap 8 POC Anion Gap POC BUN BUN 14 Creatinine 0.88 POC Creatinine Est Cr Clr Drug Dosing 49.3 eGFR 68.92 BUN/Creatinine Ratio 15.9 Glucose 123 H POC Glucose (other) Calcium 10.0 POC Ioniz Calcium Whit Total Bilirubin 0.4 AST TNP ALT 19 Alkaline Phosphatase 94 Troponin I High Sens 5.3 B-Natriuretic Peptide 67 Total Protein 7.7 Albumin 4.6 Globulin 3.1 Albumin/Globulin Ratio 1.5 Diagnostic Findings Chest CTA 11/21/25 15:48 INDICATION: Pulmonary embolism COMPARISON: None TECHNIQUE: CT images of the chest were obtained. 3D CT angiogram was generated from the axial data set. Dose reduction according to patient size and/or automated exposure control techniques have been utilized for this exam. MIP (Maximum Intensity Pixel) images were utilized. FINDINGS: AXIAL IMAGES: LUNGS: No focal consolidations. No worrisome pulmonary nodules. Minor bibasilar atelectasis or scarring. Hyperinflated lungs. No pneumothorax. PLEURA: There is no pleural effusion. MEDIASTINUM/JAVIER: Mediastinal lymph nodes measure less than 1 cm in short axis. No pathologically enlarged lymph nodes are appreciated. CARDIAC: The heart is normal in size. Moderate coronary artery calcifications. AORTA: No aneurysm. Tortuous descending aorta. LIMITED ABDOMEN: Normal size adrenal glands. Cholecystectomy clips. BONES: Scoliotic and degenerative changes of the spine. OTHER: Moderate hiatal hernia. CTA: Bilateral pulmonary emboli noted. Predominant involvement in the right lower lobe pulmonary arteries and left lower lobe pulmonary arteries. Smaller involvement left upper lobe pulmonary artery. No saddle embolus. IMPRESSION: Bilateral pulmonary emboliInvolving predominantly the lower lobe pulmonary arterial branches. Mild burden. No focal consolidations. Electronically signed by Jarocho Bal 11-21-2025 5:38 PM Venous Doppler Study 11/21/25 18:03 CR Exam(s): US VENOUS BILATERAL LOWER EXTREMITIES EXAM: US Duplex Bilateral Lower Extremities Veins CLINICAL HISTORY: Reason for exam: edema, hx of p.e.. OTHER: Other Notes: Indication: TECHNIQUE: Real-time duplex ultrasound scan of the bilateral lower extremity veins integrating B-mode two-dimensional vascular structure, Doppler spectral analysis, color flow Doppler imaging and compression. COMPARISON: No relevant prior studies available. FINDINGS: Right deep veins: Nonocclusive DVT distal femoral vein. No DVT visualized in the common femoral, proximal or mid femoral, proximal deep femoral, or popliteal veins, which demonstrate normal color flow, are normally compressible, with normal phasic flow and/or augmentation response. Right superficial veins: No thrombus in the visualized right great saphenous vein. Superficial thrombophlebitis in a branch vessel communicating with the distal femoral vein. Left deep veins: No DVT in the left common femoral, femoral, proximal deep femoral or popliteal veins. The veins demonstrate normal color flow, are normally compressible, with normal phasic flow and/or augmentation response. Left superficial veins: No thrombus in the visualized left great saphenous vein. Soft tissues: No acute findings. IMPRESSION: 1. Acute nonocclusive DVT distal right femoral vein. Superficial thrombophlebitis of a branch vessel communicating with this vein. 2. No left lower extremity DVT. Communications: Verify Receipt Electronically signed by: Michelle Acevedo M.D. 11/21/25 20:34 PM PG Care Time/CCT Total # of Minutes Spent Total Time Spent with Patient: Total time spent is greater than 50% in coordination of care (as documented) at patient's floor/unit and/or counseling patient: Coding Level of Care Code 30194 SUB INP/OBS CARE 50MIN Diagnoses Bilateral pulmonary embolism I26.99 Anxiety F41.9
[2025-11-22] MEDS: [UNRECOGNIZED DRUG - REMARK] ONE (11:40)
[2025-11-22] MEDS: APIXABAN 5 MG TABLET PO SCH (11:40)
[2025-11-22] MEDS: CHOLECALCIFEROL 25 MCG (1000 UNITS) TAB PO SCH (11:40)
[2025-11-22 15:33] LABS: ANTI-Xa, UFH(UnfractionatedHep > 1.50 IU/ml (0.3-0.7)
[2025-11-23 06:59] LABS: Hematocrit (blood only) 41.3 % (37.0-47.0); Hemoglobin 14.2 g/dL (12.0-16.0); Immature Granulocytes # (auto) 0.01 K/uL (0.01-0.20); Immature Granulocytes % (auto) 0.2 %; Mean Corpuscular Hemoglobin 31.6 pg (25.0-34.0); Mean Corpuscular Volume 92.0 fL (80.0-100.0); Platelet Count 204 K/uL (130-400); RDW Standard Deviation 43.7 fL (36.4-46.3); Red Blood Count 4.49 M/uL (4.20-5.40); White Blood Count 5.68 K/ul (4.8-10.8)
[2025-11-23 07:37] LABS: INR 1.0 (0.9-1.1); Prothrombin Time 10.8 Seconds (9.0-12.0)
[2025-11-23 07:43] LABS: Alanine Aminotransferase 13.0 U/L (7-52); Albumin Globulin Ratio 1.6 (0.9-2); Albumin Level 3.8 gm/dl (3.4-5.0); Alkaline Phosphatase 71.0 U/L (34-104); Anion Gap 8.0 (3-11); Bilirubin,Total 0.5 mg/dl (0.2-1.0); Blood Urea Nitrogen 17.0 mg/dl (6-23); Calcium 9.8 mg/dl (8.6-10.3); Carbon Dioxide 26.0 mmol/L (21-32); Chloride 103.0 mmol/L (98-107); Creatinine Clr Calc Pharmacy 50.4 ml/min; Globulin 2.4 gm/dl (2.5-4.0); Glucose 95.0 mg/dl (70-99(Fasting)); Potassium 4.3 mmol/L (3.5-5.1); Sodium 137.0 mmol/L (136-145); Total Protein 6.2 gm/dl (6.0-8.3)
[2025-11-23 08:22] VITALS: RESP 18
[2025-11-23 11:34] VITALS: BP 118/75; PULSE 82; TEMP 97.9; O2SAT 95
--- NOTE | 2025-11-23 12:08 | Discharge Summary ---
Discharge Summary Date of Service November 23, 2025 Principal Dx & Hospital Course #1 = Principal Diagnosis (1) Bilateral pulmonary embolism: (2) Anxiety: Plan 75-year-old female with a past medical history of renal cell carcinoma in remission, hypertension, IBS, hyperlipidemia, anxiety, renal cysts presents to the hospital for bilateral pulmonary embolism: #Bilateral pulmonary embolism - Lower extremity Dopplers indicate acute right femoral DVT -Patient was placed on a heparin drip by emergency room clinician, and will transition over to apixaban -Likely can follow-up with her own piping engineer/oncologist in relation to hypercoagulable workup - Echocardiogram Per cardiology with no acute findings. #Hypertension -Continue home medications #Anxiety -Continue home lorazepam as needed #Hiatal hernia -Patient underwent CT imaging Outpatient which showed 2 cm focus of mucosal thickening versus nodularity along the anterior margin, recommendations were for endoscopy. - She will benefit from follow-up with gastroenterology with considerations of an upper EGD to evaluate this area. Admission HPI Per Admitting Provider 75-year-old female with a past medical history as mentioned below presents to the hospital from home. She mentions that she went for a follow-up CT scan as ordered by her oncologist. Her clinician thereafter called her and told her to report to the emergency department due to abnormal CT findings. She was found to have likely pulmonary embolism per CT imaging done on an outpatient basis earlier today. She denies having any chest pain. She has had no dyspnea. No fevers or chills. She has had a history of superficial thrombophlebitis, in the form of thrombosed varicose veins in the past. She denies significant leg swelling. She has mild edema of her left lower extremity. She has had some increased hip discomfort and for this reason has been somewhat sedentary but does engage in normal activities of daily living. She is up-to-date in regards to her cancer screening, and today was undergoing imaging in relation to a left sided renal cyst. She is to follow-up with nephrology in relation to this cyst. She denies any family history of thromboembolism, no history of miscarriages. Discharge Plan Discharge Items Patient Disposition: Home - Self-Care Reason For Visit: PULMONARY EMBOLISM Discharge Diagnosis: Pulmonary embolism Condition on Discharge: Serious Activity: Resume your previous activity Lifting: Gradually increase as tolerated Bathing: No limitations Sexual Activity: When tolerated Exercise/Sports: Gradually increase as tolerated Driving/Machine Use: Resume 3 days after discharge Weightbearing: Full weightbearing Non-emergency contact: Primary Care Provider Call non-emergency contact if: you have any medication questions, your pain is concerning for you and you have a fever Follow-up/Referrals: Alison Mathias DO [Primary Care Provider] - 12/04/25 10:20 am Diet: Heart Healthy Addtl Attending Provider Instructions: please follow-up with your primary care physician along with your piping engineer after leaving the hospital. If you have any evidence of bleeding, or dark stools consider returning to the hospital at that time. You have been diagnosed with a blood clots in your lung along with a blood clot in your leg, and will require medications to help prevent further blood clots in the future. You had a CAT scan that showed you have a hiatal hernia with some changes along your stomach, you will benefit from seeing a activities volunteer for this. Pending Studies at Discharge: No Stand-Alone Forms: My [facility] Bundle Buy, Smoking Cessation Medications and DC Order Prescriptions: New apixaban 5 mg tablet 5 mg PO BID Qty: 60 0RF Rx Instructions: not started...just ordered Continued candesartan 4 mg tablet 4 mg PO QPM Qty: 90 1RF lorazepam [Ativan] 0.5 mg tablet 0.5 mg PO HS Qty: 30 3RF mecobalamin (vitamin B12) 1,000 mcg tablet,disintegrating 1,000 mcg sublingual QAM Rx Instructions: place tablet under tongue and allow to dissolve for at least30 secs before swallowing cholecalciferol (vitamin D3) 50 mcg (2,000 unit) capsule 50 mcg PO QDL magnesium glycinate 100 mg magnesium capsule 200 mg PO QPM mometasone 50 mcg/actuation spray,non-aerosol 1 - 2 spray intranasal QAM Qty: 17 5RF caffeine 200 mg tablet 200 mg PO BID PRN (Reason: headache ) Qty: 60 1RF famotidine 40 mg tablet 40 mg PO QAM Xdemvy 0.25 % drops 1 drp OPB BID Discharge Orders: Discharge Order (Routine); Ordered 11/23/25 Ordered By: Sudha Casiano/Other Patient Handouts: Apixaban Oral Tablet, Pulmonary Embolism Dc Admission Data Admit Date/Time: 11/21/25 18:03 Attending Provider: Sudha Licona Admit Provider: Sudha Licona Primary Care Provider: Alison Mathias Other Providers: Sudha Licona Hospital Stay Data Consultations 11/21/25 17:20 ED Decision to Admit Stat Diagnostic Imagining Performed Chest CTA 11/21/25 15:48 INDICATION: Pulmonary embolism COMPARISON: None TECHNIQUE: CT images of the chest were obtained. 3D CT angiogram was generated from the axial data set. Dose reduction according to patient size and/or automated exposure control techniques have been utilized for this exam. MIP (Maximum Intensity Pixel) images were utilized. FINDINGS: AXIAL IMAGES: LUNGS: No focal consolidations. No worrisome pulmonary nodules. Minor bibasilar atelectasis or scarring. Hyperinflated lungs. No pneumothorax. PLEURA: There is no pleural effusion. MEDIASTINUM/JAVIER: Mediastinal lymph nodes measure less than 1 cm in short axis. No pathologically enlarged lymph nodes are appreciated. CARDIAC: The heart is normal in size. Moderate coronary artery calcifications. AORTA: No aneurysm. Tortuous descending aorta. LIMITED ABDOMEN: Normal size adrenal glands. Cholecystectomy clips. BONES: Scoliotic and degenerative changes of the spine. OTHER: Moderate hiatal hernia. CTA: Bilateral pulmonary emboli noted. Predominant involvement in the right lower lobe pulmonary arteries and left lower lobe pulmonary arteries. Smaller involvement left upper lobe pulmonary artery. No saddle embolus. IMPRESSION: Bilateral pulmonary emboliInvolving predominantly the lower lobe pulmonary arterial branches. Mild burden. No focal consolidations. Electronically signed by Jarocho Bal 11-21-2025 5:38 PM Venous Doppler Study 11/21/25 18:03 CR Exam(s): US VENOUS BILATERAL LOWER EXTREMITIES EXAM: US Duplex Bilateral Lower Extremities Veins CLINICAL HISTORY: Reason for exam: edema, hx of p.e.. OTHER: Other Notes: Indication: TECHNIQUE: Real-time duplex ultrasound scan of the bilateral lower extremity veins integrating B-mode two-dimensional vascular structure, Doppler spectral analysis, color flow Doppler imaging and compression. COMPARISON: No relevant prior studies available. FINDINGS: Right deep veins: Nonocclusive DVT distal femoral vein. No DVT visualized in the common femoral, proximal or mid femoral, proximal deep femoral, or popliteal veins, which demonstrate normal color flow, are normally compressible, with normal phasic flow and/or augmentation response. Right superficial veins: No thrombus in the visualized right great saphenous vein. Superficial thrombophlebitis in a branch vessel communicating with the distal femoral vein. Left deep veins: No DVT in the left common femoral, femoral, proximal deep femoral or popliteal veins. The veins demonstrate normal color flow, are normally compressible, with normal phasic flow and/or augmentation response. Left superficial veins: No thrombus in the visualized left great saphenous vein. Soft tissues: No acute findings. IMPRESSION: 1. Acute nonocclusive DVT distal right femoral vein. Superficial thrombophlebitis of a branch vessel communicating with this vein. 2. No left lower extremity DVT. Communications: Verify Receipt Electronically signed by: Michelle Acevedo M.D. 11/21/25 20:34 PM 11/21/25 15:48 CT angio chest PE protocol Stat 11/21/25 18:03 US venous doppler LE BI Stat Pending Results Patient Have Any Pending Studies at Discharge: No Discharge Instructions Given to Patient (Per Discharging Provider) please follow-up with your primary care physician along with your piping engineer after leaving the hospital. If you have any evidence of bleeding, or dark stools consider returning to the hospital at that time. You have been diagnosed with a blood clots in your lung along with a blood clot in your leg, and will require medications to help prevent further blood clots in the future. You had a CAT scan that showed you have a hiatal hernia with some changes along your stomach, you will benefit from seeing a activities volunteer for this. Total Time Total Time Spent Total Time Spent (In Minutes): 45 minutes Coding Level of Care Code 50535 INP/OBS DISCH >30 MIN Diagnoses Bilateral pulmonary embolism I26.99 Anxiety F41.9
== END 2025-11-23 13:00 | disposition home or self-care (01) | DRG 176 ==
LOC: SUATTDRO → ED 15:44 → EDINP 18:03 → 2N 20:28